=== PATIENT | male | born 1940 | race Caucasian/White ===

== ENCOUNTER 2018-11-25 10:49 | Observation (INO) | payer MEDICARE, BC, SELFPAY ==
[2018-11-25] VITALS (10 sets, daily range): BP systolic 112–149; BP diastolic 69–88; PULSE 60–143; RESP 12–24; TEMP 36.4–36.9; O2SAT 95–99; BMI 35.2
--- NOTE | 2018-11-25 11:11 | DI.RAD.S_ITS ---
PROCEDURE: XR CHEST 1V INDICATIONS: chest pain TECHNIQUE: One view of the chest was acquired. COMPARISON: None. FINDINGS: Surgical changes and devices: None. Lungs and pleura: Lungs are clear. No pleural effusions or pneumothorax. Mediastinum: Mediastinal contours appear normal. Heart size is normal. There is aortic atherosclerosis. Bones and chest wall: No suspicious bony lesions. Overlying soft tissues appear unremarkable. IMPRESSION: Negative chest. No acute cardiopulmonary process is suspected. Dictated by: Renan Rousseau M.D. on 11/25/2018 at 10:28 Approved by: Renan Rousseau M.D. on 11/25/2018 at 10:30
--- NOTE | 2018-11-25 11:14 | ED_ITS ---
HPI - Arrhythmia/Palpitations General Chief Complaint: Shortness of Breath/Dyspnea Stated Complaint: low blood oxygen and erratic HB Time Seen by Provider: 11/25/18 11:06 Source: patient and family Mode of arrival: ambulatory Limitations: no limitations History of Present Illness HPI narrative: Patient is a 78-year-old male with history of obstructive sleep apnea with CPAP machine and pulse oximeter at home presenting with lightheadedness. He is actually found to be in AFib with RVR in the emergency department. He says the he felt lightheaded at home he used his home pulse oximeter placed on his finger and it said 94% which he thought was low in came to the emergency department. He denies any chest pain or heart palpitations. He states that he was not lightheaded yesterday. He has no prior history of AFib. He denies shortness of breath or cough no fever or chills Related Data Home Medications Medication Instructions Recorded Confirmed amlodipine 10 mg PO DAILY 11/25/18 11/25/18 aspirin [Adult Low Dose Aspirin] 81 mg PO DAILY 11/25/18 11/25/18 lisinopril 20 mg PO DAILY 11/25/18 11/25/18 simvastatin 20 mg PO DAILY 11/25/18 11/25/18 tamsulosin 0.4 mg PO DAILY 11/25/18 11/25/18 Allergies Allergy/AdvReac Type Severity Reaction Status Date / Time No Known Drug Allergies Allergy Verified 11/25/18 11:29 Review of Systems Review of Systems ROS Unobtainable: All systems reviewed & are unremarkable except as noted in HPI and below Constitutional Denies chills, Denies fever(s), Denies lethargy and Denies weakness Eyes Denies change in vision, Denies eye discharge, Denies irritation and Denies loss of vision Cardiovascular Reports as per HPI, Reports irregular heart rhythm, Reports lightheadedness, Denies dyspnea and Denies dyspnea on exertion Respiratory Denies cough, Denies dyspnea, Denies dyspnea on exertion and Denies wheezing Gastrointestinal Gastrointestinal: Denies abdominal pain, Denies change in bowel habits, Denies diarrhea, Denies nausea and Denies vomiting Genitourinary Denies hematuria, Denies flank pain, Denies urinary incontinence and Denies urinary urgency Integumentary/Breasts Denies pruritus, Denies erythema, Denies rash and Denies wounds Neurologic Denies loss of vision and Denies weakness Allergic/Immunologic Denies wheezing [facility] Medical History (Updated 11/25/18 @ 15:33 by Mamie Mitchell RN) BPH (benign prostatic hyperplasia) (Acute) Cataract (lens) fragments in eye following cataract surgery, bilateral (Acute) Hyperlipidemia (Acute) Hypertension (Acute) Sleep apnea (Acute) Surgical History (Updated 11/25/18 @ 15:33 by Mamie Mitchell RN) H/O hernia repair (Acute) History of tonsillectomy (Acute) Hx laparoscopic cholecystectomy (Acute) Social History marital status: household members: spouse and children Smoking Status: Former smoker alcohol intake: current Social History marital status: household members: spouse and children Smoking Status: Former smoker alcohol intake: current Exam Initial Vital Signs Initial Vital Signs: Vital Signs Temperature 98 F 11/25/18 11:11 Pulse Rate 143 H 11/25/18 11:11 Respiratory Rate 21 11/25/18 11:11 Blood Pressure 149/88 H 11/25/18 11:11 Pulse Oximetry 97 11/25/18 11:11 GENERAL: Alert elderly male HEENT: Head atraumatic,EOMI, pupils reactive, face symmetric, moist mucous membranes CARDIOVASCULAR: Irregularly irregular tachycardic RESPIRATORY: Breath sounds equal bilaterally, no wheezes rales or rhonchi. ABDOMEN: Soft, nontender. Normoactive bowel sounds all 4 quadrants. No guarding or rebound. EXTREMITIES: Normal range of motion, no clubbing or edema. Neurovascularly intact NEUROLOGICAL: Alert and oriented x4.Normal gait and speech. Cranial nerves II through XII grossly intact. SKIN: Warm, dry, no laceration, no petechiae, no rashes or lesions. Scores CHADS-VASc Congestive heart failure: no Hypertension: yes Age 75 years or older: yes Diabetes mellitus: no Stroke, TIA, or TE: yes Vascular disease: no Age 65 to 74 years: no Sex category (female): Male CHADS-VASc Score: 5 Course Orders Ordered: ED Orders 11/25/18 11:05 EKG-12 Lead Stat 11/25/18 11:11 XR chest 1V Stat 11/25/18 11:15 B Type Natriuretic Peptide Stat Complete Blood Count AUTO DIFF Stat Comprehensive Metabolic Panel Stat Magnesium Stat Partial Thromboplastin Time Stat Prothrombin Time INR Stat Thyroid Stimulating Hormone Stat Troponin & CK Cardiac Panel Stat 11/25/18 13:51 EKG-12 Lead Routine Sodium Chloride (Normal Saline 0.9%) 1,000 mls @ 150 mls/hr IV CONT ROSIE Last Infusion: 11/25/18 14:46 Dose: 150 mls/hr Admin: 11/25/18 11:30 Dose: 150 mls/hr Discontinued Medications Diltiazem HCl (Cardizem) 10 mg IV NOW ONE Stop: 11/25/18 11:11 Last Admin: 11/25/18 11:30 Dose: 10 mg Warfarin Sodium (Coumadin) 5 mg PO NOW ONE Stop: 11/25/18 13:22 Last Admin: 11/25/18 14:30 Dose: Not Given Vital Signs - 8 hr 11/25/18 11:11 11/25/18 11:30 11/25/18 12:30 Temperature 98 F Pulse Rate 143 H 122 H 96 H Respiratory Rate 21 19 Blood Pressure 149/88 H 144/88 H Blood Pressure [Right Arm] 112/79 Pulse Oximetry 97 95 11/25/18 13:30 11/25/18 14:37 11/25/18 14:50 Temperature 98.5 F Pulse Rate 75 64 62 Respiratory Rate 20 12 24 Blood Pressure 128/72 149/81 H Blood Pressure [Right Arm] 137/74 Pulse Oximetry 99 96 97 11/25/18 15:56 Temperature 97.5 F L Pulse Rate 60 Respiratory Rate 19 Blood Pressure 145/78 H Blood Pressure [Right Arm] Pulse Oximetry 97 MDM - Arrhythmia/Palpitations Lab Data Attestation: I reviewed the patient's lab results. Result diagrams: 11/25/18 11:15 11/25/18 11:15 Lab Results 11/25/18 11/25/18 11/25/18 Range/Units 11:15 11:15 11:15 WBC 7.1 (4.5-11.0) X10^3/uL RBC 4.77 (4.5-5.9) X10^6/uL Hgb 15.5 (13.5-17.5) g/dL Hct 44.5 (41-53) % MCV 93.3 (80-100) fL MCH 32.6 (26-34) PG MCHC 34.9 (30-36) % RDW 12.8 (11.6-14.8) % Plt Count 154 (150-400) X10^3/uL Neut % (Auto) 76.4 H (50-75) % Lymph % (Auto) 12.2 L (25-40) % [place] % (Auto) 9.8 (3-14) % Eos % (Auto) 1.1 L (2-4) % Baso % (Auto) 0.5 (0-2) % Neut # (Auto) 5400 (6731-1704) /uL Lymph # (Auto) 900 L (8118-9646) /uL [place] # (Auto) 700 (0-900) /uL Eos # (Auto) 100 (0-450) /uL Baso # (Auto) 0 (0-100) /uL PT 11.4 (10.1-12.7) SECONDS INR 1.0 (0.9-1.3) APTT 37 H (26.4-36.2) SECONDS Sodium 139 (137-145) mmol/L Potassium 4.1 (3.4-5.1) mmol/L Chloride 105 (98-107) mmol/L Carbon Dioxide 24 (22-32) mmol/L BUN 13 (9-20) mg/dL Creatinine 0.80 (0.66-1.25) mg/dL Estimated GFR > 60.0 (>60) mL/min BUN/Creatinine Ratio 16.3 (6-22) Glucose 126 H (80-110) mg/dL Calcium 9.4 (8.4-10.2) mg/dL Magnesium (1.6-2.3) mg/dL Total Bilirubin 0.8 (0.2-1.3) mg/dL AST 36 (17-59) IU/L ALT 28 (21-72) IU/L Alkaline Phosphatase 75 (38-126) U/L Total Creatine Kinase (55-170) U/L CK-MB (CK-2) (<2.37) ng/mL CK-MB (CK-2) Rel Index (1.5-5.0) % Troponin I (0.01-0.034) ng/mL B-Natriuretic Peptide (<100) Total Protein 7.7 (6.3-8.2) g/dL Albumin 4.5 (3.5-5.0) g/dL Globulin 3.2 (1.7-4.1) g/dL Albumin/Globulin Ratio 1.4 (1.0-2.8) TSH (0.47-4.68) uIU/mL 11/25/18 11/25/18 11/25/18 Range/Units 11:15 11:15 11:15 WBC (4.5-11.0) X10^3/uL RBC (4.5-5.9) X10^6/uL Hgb (13.5-17.5) g/dL Hct (41-53) % MCV (80-100) fL MCH (26-34) PG MCHC (30-36) % RDW (11.6-14.8) % Plt Count (150-400) X10^3/uL Neut % (Auto) (50-75) % Lymph % (Auto) (25-40) % [place] % (Auto) (3-14) % Eos % (Auto) (2-4) % Baso % (Auto) (0-2) % Neut # (Auto) (9135-6378) /uL Lymph # (Auto) (6884-1598) /uL [place] # (Auto) (0-900) /uL Eos # (Auto) (0-450) /uL Baso # (Auto) (0-100) /uL PT (10.1-12.7) SECONDS INR (0.9-1.3) APTT (26.4-36.2) SECONDS Sodium (137-145) mmol/L Potassium (3.4-5.1) mmol/L Chloride (98-107) mmol/L Carbon Dioxide (22-32) mmol/L BUN (9-20) mg/dL Creatinine (0.66-1.25) mg/dL Estimated GFR (>60) mL/min BUN/Creatinine Ratio (6-22) Glucose (80-110) mg/dL Calcium (8.4-10.2) mg/dL Magnesium 2.0 (1.6-2.3) mg/dL Total Bilirubin (0.2-1.3) mg/dL AST (17-59) IU/L ALT (21-72) IU/L Alkaline Phosphatase (38-126) U/L Total Creatine Kinase 221 H (55-170) U/L CK-MB (CK-2) 4.10 H (<2.37) ng/mL CK-MB (CK-2) Rel Index 1.9 (1.5-5.0) % Troponin I < 0.012 (0.01-0.034) ng/mL B-Natriuretic Peptide 154 H (<100) Total Protein (6.3-8.2) g/dL Albumin (3.5-5.0) g/dL Globulin (1.7-4.1) g/dL Albumin/Globulin Ratio (1.0-2.8) TSH 2.99 (0.47-4.68) uIU/mL Imaging Data Chest x-ray: Radiologist's impression: PROCEDURE: XR CHEST 1V INDICATIONS: chest pain TECHNIQUE: One view of the chest was acquired. COMPARISON: None. FINDINGS: Surgical changes and devices: None. Lungs and pleura: Lungs are clear. No pleural effusions or pneumothorax. Mediastinum: Mediastinal contours appear normal. Heart size is normal. There is aortic atherosclerosis. Bones and chest wall: No suspicious bony lesions. Overlying soft tissues appear unremarkable. IMPRESSION: Negative chest. No acute cardiopulmonary process is suspected. Dictated by: Renan Rousseau M.D. on 11/25/2018 at 10:28 ECG Data Attestation: I personally reviewed and interpreted this ECG as follows: Prior ECG tracings: not available for review Interpretation: EKG 1. Atrial fibrillation with right bundle-branch block rate [address] changes no priors to compare EKG 2. Sinus rhythm right bundle-branch block rate 65 p.r. interval 193 MDM Narrative Medical decision making narrative: This is new onset atrial fibrillation for patient. Once his heart rate is controlled he is adamant that he is completely asymptomatic. I am not convinced that patient's symptoms started today. For th is reason patient is not a candidate for any sort of cardioversion. He is also not on any blood thinners. The patient's heart rate remained control with 10 mg of Cardizem. However on standing his heart rate increased back up to 130's he denies any lightheadedness at that time. He does have an elevated chads 2 Vasc score and will require anticoagulation. I discussed with him Coumadin versus other type of anticoagulation. At this time his is on Coumadin they are familiar with it and he would like to be on that. I have discussed case with Dr. Majano, agrees with admission to observation. At this time does not need Cardizem drip can likely be controlled with p.o. medications. Patient converted to sinus rhythm I have updated . Discharge Plan Departure Patient Disposition: Admitted as Observation Clinical Impression: Atrial fibrillation, new onset Discharge Date/Time: 11/25/18 14:45 Interventions: ED Discharge Assessment Last Done: 11/25/18 14:37 Admit Date/Time: 11/25/18 13:39 Admit Provider: Ant Smith
[2018-11-25 11:24] LABS: Add Manual Diff / Slide Review NO; Basophils Absolute Auto 0 /uL (0-100); Basophils Percent Auto 0.5 % (0-2); Eosinophils Absolute Auto 100 /uL (0-450); Eosinophils Percent Auto 1.1 % (2-4); Hematocrit 44.5 % (41-53); Hemoglobin 15.5 g/dL (13.5-17.5); Lymphocytes Absolute Auto 900 /uL (1100-4500); Lymphocytes Percent Auto 12.2 % (25-40); Mean Corpuscular HGB Conc 34.9 % (30-36); Mean Corpuscular Hemoglobin 32.6 PG (26-34); Mean Corpuscular Volume 93.3 fL (80-100); Monocytes Absolute Auto 700 /uL (0-900); Monocytes Percent Auto 9.8 % (3-14); Neutrophils Absolute Auto 5400 /uL (1500-7000); Neutrophils Percent Auto 76.4 % (50-75); Platelet Count 154 X10^3/uL (150-400); Red Blood Cell Count 4.77 X10^6/uL (4.5-5.9); Red Cell Distribution Width 12.8 % (11.6-14.8); White Blood Cell Count 7.1 X10^3/uL (4.5-11.0)
[2018-11-25] MEDS: SODIUM CHLORIDE 0.9% 1,000 ML 150 ML IV ×2 (11:30→18:25)
[2018-11-25] MEDS: dilTIAZem 5 MG/ML SDV 10 MG IV (11:30)
[2018-11-25 11:38] LABS: Prothrombin Time 11.4 SECONDS (10.1-12.7)
[2018-11-25 11:40] LABS: PTT Partial Thromboplastin Tim 37 SECONDS (26.4-36.2)
[2018-11-25 11:41] LABS: Creatine Kinase 221 U/L (55-170)
[2018-11-25 11:45] LABS: Alanine Aminotransferase 28 IU/L (21-72); Albumin 4.5 g/dL (3.5-5.0); Albumin Globulin Ratio 1.4 (1.0-2.8); Alkaline Phosphatase 75 U/L (38-126); Aspartate Aminotransferase 36 IU/L (17-59); BUN Creatinine Ratio 16.3 (6-22); Bilirubin Total 0.8 mg/dL (0.2-1.3); Blood Urea Nitrogen 13 mg/dL (9-20); Calcium 9.4 mg/dL (8.4-10.2); Carbon Dioxide 24 mmol/L (22-32); Chloride 105 mmol/L (98-107); Estimated Glomerular Filt Rate > 60.0 mL/min (>60); Globulin 3.2 g/dL (1.7-4.1); Glucose 126 mg/dL (80-110); HEMOLYSIS < 15 (0-50); Potassium 4.1 mmol/L (3.4-5.1); Sodium 139 mmol/L (137-145); Total Protein 7.7 g/dL (6.3-8.2)
[2018-11-25 11:53] LABS: Troponin I < 0.012 ng/mL (0.01-0.034)
[2018-11-25 12:06] LABS: CKMB % Relative Index 1.9 % (1.5-5.0); Thyroid Stimulating Hormone 2.99 uIU/mL (0.47-4.68)
--- NOTE | 2018-11-25 12:51 | PC.NURSE ---
Reports waking up this morning feeling dizzy and lightheaded. Denies any chest pain or pressure.
--- NOTE | 2018-11-25 13:31 | PC.NURSE ---
Stood patient by edge of bed. Hr increased to 142 upon standing. After sitting back on bed hr decreased to low 100s.
[2018-11-25 14:08] LABS: B Type Natriuretic Peptide 154 (<100)
--- NOTE | 2018-11-25 15:31 | PC.NURSE ---
Day Shift- Report rec'd from ALIAN Pizano in ED at 1433. pt arrived to room 205 via wheelchair with ED TOEING STOCKINGS at 1450, pt settled into bed, bed alarm on, no HX of any falls. Pt's Althea at bedside. Pt good historian, oriented to call light. Pt's med list given to Evening RN and report on pt's admit DX and current status. Spoke with Dr. Smith at 1532 and made aware of pt arrival to unit.
--- NOTE | 2018-11-25 16:25 | P.HP_ITS ---
History of Present Illness Date Patient Seen: 11/25/18 Time Patient Seen: 17:36 Chief complaint: low blood oxygen and erratic HB Narrative: Robbin fabian is a 78-year-old male with past medical history hypertension, hyperlipidemia, BPH, and TAD with recent difficulties with CPAP machine who presented to the ED with lightheadedness. Patient states this morning he developed acute lightheadedness, mild confusion (described as grogginess) which started suddenly. He felt his pulse and it was irregularly irregular so he decided to come to the emergency room. He reports a prior episode of AFib, but does not recall an ultrasound and was not prescribed any medications for this. He denies recent chest pain, nausea, vomiting, diaphoresis, shortness of breath, orthopnea, headaches, lower extremity edema, or fevers chills. He follows with a primary care doctor but has not seen them in over a year. He has a 16 pack year smoking history, but denies diabetes or prior thyroid problems. He denies any known family history of heart disease. In the emergency room he was found to be in AFib with RVR, he was given 10 mg of IV diltiazem with improvement in his rate and subsequent conversion to normal sinus rhythm. Upon my interview his symptoms had resolved and he felt well. He was admitted to Medicine under observation status for new diagnosis of AFib with RVR. Patient History Medical History (Updated 11/25/18 @ 15:33 by Mamie Mitchell RN) BPH (benign prostatic hyperplasia) (Acute) Cataract (lens) fragments in eye following cataract surgery, bilateral (Acute) Hyperlipidemia (Acute) Hypertension (Acute) Sleep apnea (Acute) Surgical History (Updated 11/25/18 @ 15:33 by Mamie Mitchell RN) H/O hernia repair (Acute) History of tonsillectomy (Acute) Hx laparoscopic cholecystectomy (Acute) Social History marital status: household members: spouse and children Smoking Status: Former smoker alcohol intake: current Family & Social History Social History: household members spouse,children Prior Living Arrangements House Safety & Behavioral: Feels Safe in Current Yes Environment Been Physically Hurt or No Threatened By a Person Suicidal Ideation Description None Suicide Plan Description No Plan Tobacco & Substance use: Tobacco type cigarettes,pipe Smoking Status Former smoker alcohol intake current alcohol intake frequency a few times a week Substance Use Type does not use Meds Home Medications Medication Instructions Recorded Confirmed Type amlodipine 10 mg PO DAILY 11/25/18 11/25/18 History aspirin [Adult Low Dose Aspirin] 81 mg PO DAILY 11/25/18 11/25/18 History lisinopril 20 mg PO DAILY 11/25/18 11/25/18 History simvastatin 20 mg PO DAILY 11/25/18 11/25/18 History tamsulosin 0.4 mg PO DAILY 11/25/18 11/25/18 History Allergies Allergy/AdvReac Type Severity Reaction Status Date / Time No Known Drug Allergies Allergy Verified 11/25/18 11:29 Review of Systems Review of Systems All other systems reviewed with the patient and are negative unless otherwise stated. Exam Vital Signs (past 8 hours): - 11/25/18 11:11 11/25/18 11:30 11/25/18 12:30 Temperature 98 F Pulse Rate 143 H 122 H 96 H Respiratory Rate 21 19 Blood Pressure 149/88 H 144/88 H Blood Pressure [Right Arm] 112/79 Pulse Oximetry 97 95 11/25/18 13:30 11/25/18 14:37 11/25/18 14:50 Temperature 98.5 F Pulse Rate 75 64 62 Respiratory Rate 20 12 24 Blood Pressure 128/72 149/81 H Blood Pressure [Right Arm] 137/74 Pulse Oximetry 99 96 97 11/25/18 15:56 Temperature 97.5 F L Pulse Rate 60 Respiratory Rate 19 Blood Pressure 145/78 H Blood Pressure [Right Arm] Pulse Oximetry 97 Oxygen Delivery Method Room Air Oxygen Flow Rate 0 Narrative Exam Narrative: GENERAL APPEARANCE: Well developed, well nourished, in no acute distress. SKIN: Inspection of the skin reveals no rashes, ulcerations or petechiae. There are small scattered bruises in his upper extremities. HEENT: The sclerae were anicteric and conjunctivae were pink and moist. Extraocular movements were intact and pupils were equal, round with normal accommodation. External inspection of the ears and nose showed no scars, lesions, or masses. Lips, teeth, and gums showed normal mucosa. The oral mucosa, hard and soft palate, tongue and posterior pharynx were unremarkable. NECK: Supple and symmetric. There was no thyroid enlargement, and no tenderness, or masses were felt. CHEST: Normal AP diameter and normal contour without any kyphoscoliosis. LUNGS: Auscultation of the lungs revealed no wheezes, rhonchi, or rales. CARDIOVASCULAR: There was a regular rate and rhythm without any murmurs, gallops, rubs. Peripheral pulses were 2+ and symmetric. ABDOMEN: Soft and nontender with normal bowel sounds. No ascites was noted. MUSCULOSKELETAL: There was no tenderness or effusions noted. Muscle strength and tone were normal. EXTREMITIES: No cyanosis, clubbing or edema. NEUROLOGIC: Alert and oriented x 3. Normal affect. Gait was normal. Strength is +5/5 in the Upper Extremities and Lower Extremities Bilaterally. Sensation to touch was normal. Objective ECG Impression: My interpretation of his EKG is Atrial fibrillation with RVR. Right bundle branch block. Possible inferior old ID. Subsequent EKG showing normal sinus rhythm with right bundle branch block. Labs Result Diagrams: 11/25/18 11:15 11/25/18 11:15 Labs: Laboratory Results - last 24 hr 11/25/18 11/25/18 11/25/18 11:15 11:15 11:15 WBC 7.1 RBC 4.77 Hgb 15.5 Hct 44.5 MCV 93.3 MCH 32.6 MCHC 34.9 RDW 12.8 Plt Count 154 Neut % (Auto) 76.4 H Lymph % (Auto) 12.2 L [place] % (Auto) 9.8 Eos % (Auto) 1.1 L Baso % (Auto) 0.5 Neut # (Auto) 5400 Lymph # (Auto) 900 L [place] # (Auto) 700 Eos # (Auto) 100 Baso # (Auto) 0 PT 11.4 INR 1.0 APTT 37 H Sodium 139 Potassium 4.1 Chloride 105 Carbon Dioxide 24 BUN 13 Creatinine 0.80 Estimated GFR > 60.0 BUN/Creatinine Ratio 16.3 Glucose 126 H Calcium 9.4 Magnesium Total Bilirubin 0.8 AST 36 ALT 28 Alkaline Phosphatase 75 Total Creatine Kinase CK-MB (CK-2) CK-MB (CK-2) Rel Index Troponin I B-Natriuretic Peptide Total Protein 7.7 Albumin 4.5 Globulin 3.2 Albumin/Globulin Ratio 1.4 TSH 11/25/18 11/25/18 11/25/18 11:15 11:15 11:15 WBC RBC Hgb Hct MCV MCH MCHC RDW Plt Count Neut % (Auto) Lymph % (Auto) [place] % (Auto) Eos % (Auto) Baso % (Auto) Neut # (Auto) Lymph # (Auto) [place] # (Auto) Eos # (Auto) Baso # (Auto) PT INR APTT Sodium Potassium Chloride Carbon Dioxide BUN Creatinine Estimated GFR BUN/Creatinine Ratio Glucose Calcium Magnesium 2.0 Total Bilirubin AST ALT Alkaline Phosphatase Total Creatine Kinase 221 H CK-MB (CK-2) 4.10 H CK-MB (CK-2) Rel Index 1.9 Troponin I < 0.012 B-Natriuretic Peptide 154 H Total Protein Albumin Globulin Albumin/Globulin Ratio TSH 2.99 Assessment & Plan Assessment & Plan narrative: Robbin fabian is a 78-year-old male with past medical history hypertension, hyperlipidemia, BPH, and TAD with recent difficulties with CPAP machine who presented to the ED with lightheadedness admitted under observation status for new diagnosis of atrial fibrillation. 1. Paroxysmal Atrial fibrillation with RVR, present on admission, now improved. - New diagnosis, unclear if he truly had atrial fibrillation in the past, and he is currently in normal sinus rhythm after receiving 10 mg of IV diltiazem. His chads Vasc score is 5. This may be in the setting of recently worsened TAD. -risk stratification with A1c, TSH already done and is within normal limits, and lipid panel -will start oral apixaban tonight -obtain TTE -continue diltiazem 30 mg q.6 hours -continue tele -1st troponin negative, will repeat a 2nd tonight to rule out ACS. 2. Hypertension, chronic -discontinue amlodipine in favor of diltiazem -continue home lisinopril 3. Hyperlipidemia, chronic -will repeat lipid panel in the morning as he has not seen his primary care physician in a year. -continue simvastatin 20 mg 4. BPH - -continue home tamsulosin 5. Obstructive sleep apnea, chronic - -CPAP per RT protocol Disposition: Admit under observation, if echo grossly unremarkable can be discharged potentially tomorrow. Scores CHADS-VASc Congestive heart failure: no Hypertension: yes Age 75 years or older: yes Diabetes mellitus: no Stroke, TIA, or TE: yes Vascular disease: no Age 65 to 74 years: no Sex category (female): Male CHADS-VASc Score: 5 Quality VTE Deep Vein Thrombosis/Pulmonary Embolism Present on Admission: No
--- NOTE | 2018-11-25 16:38 | DI.ECHO.S_ITS ---
[place] [facility]---------+ [facility] +---------+ : : [address] : : : : [id number] : : : : Phone: [phone] Echocardiogram Report + + :Name: LOBO FREITAS Study Date: 11/26/2018 Height: 72 in : :[facility] Weight: 260 lb : : Gender: Male BSA: 2.4 m2 : :: 1940 Age: 78 yrs BP: 149/81 mmHg: :Reason For Study: Atrial fibrillation, NEW : :Ordering Physician: Cosme : :Hospitalist Performed By: [place] : :Referring: JACKI AGRAWAL : + + Interpretation Summary Technically difficult study requiring Definity echocontrast enhancement. Normal sinus rhythm. Normal LV size; mild concentric LVH; mild global hypokinesis. EF is 45-50%. Aortic sclerosis wtihout stenosis. Otherwise no significant valvular abnormalities. Mild LA enlargement. Otherwise normal chamber sizes. No prior study available for comparison. Procedure: A two-dimensional transthoracic echocardiogram with color flow and Doppler was performed. The study quality was technically adequate. A contrast injection of Definity was performed to improve assessment of LV function. There is no prior echocardiogram noted for this patient. The patient was in sinus bradycardia with heart rates between 56-63 bpm during the exam. Left Ventricle: The left ventricle is normal in size. Left ventricular wall thickness is mildly increased. The ejection fraction is estimated to be 45- 50%. There are no obvious focal wall motion abnormalities noted but poor endocardial definition reduces the sensitivity for the detection of such. Right Ventricle: The right ventricle is normal in size and function. Atria: The left atrium is mildly dilated. Right atrial size is normal. The interatrial septum is intact with no evidence for an atrial septal defect. Mitral Valve: There is mild mitral regurgitation. Aortic Valve: The aortic valve is trileaflet. The aortic valve is mildly calcified. There is minimally reduced leaflet mobility. There is mild aortic regurgitation. Tricuspid Valve: The tricuspid valve is normal. There is mild tricuspid regurgitation. The right ventricular systolic pressure is estimated to be at least 29 mmHg based on an estimated right atrial pressure of 3 mm Hg. Pulmonic Valve: The pulmonic valve leaflets are thin and pliable; valve motion is normal. There is a trace or physiologic amount of pulmonic regurgitation. Great Vessels: The aortic root is borderline dilated. The ascending aorta is mildly enlarged. The pulmonary artery is not well visualized, but is probably normal size. The IVC is of normal diameter and collapses greater than 50% with a sniff. This suggests a low right atrial pressure of 3 mm Hg. Pericardium/ Pleura There is no pericardial effusion. There is no pleural effusion. MMode/2D Measurements & Calculations LVIDd: 5.2 cm LVOT diam: 2.5 cm LVIDs: 4.0 cm Ao root diam: 4.2 cm FS: 22.9 % asc Aorta Diam: 3.8 cm EPSS: 1.3 cm Ao Arch Diam (Prox Trans): 3.1 cm IVSd: 1.1 cm LVPWd: 1.1 cm LV lopez. diameter/BSA (cm/m^2): 2.2 LV sys. diameter/BSA (cm/m^2): 1.7 LA A2 area: 29.2 cm2 RA long axis: 6.6 cm LA A4 area: 26.1 cm2 RA area: 21.3 cm2 LA length (vol): 6.4 cm RA vol: 58.4 ml LA vol: 101.2 ml RA : 24.5 ml/m2 LA vol index: 42.5 ml/m2 RVD1 (basal): 4.6 cm TAPSE: 2.4 cm Doppler Measurements & Calculations Ao V2 max: 143.9 cm/sec LVOT Max Red: 79.0 cm/sec Ao V2 mean: 105.8 cm/sec LV V1 max P.5 mmHg Ao max P.3 mmHg LV V1 VTI: 19.3 cm Ao mean P.8 mmHg SLIME(I,D): 2.8 cm2 Ao V2 VTI: 34.0 cm SLIME(V,D): 2.7 cm2 sev ratio: 0.57 SLIME indexed to BSA (cm^2/m^2): 1.2 MV E max red: 100.9 cm/sec TR max red: 253.1 cm/sec MV A max red: 112.9 cm/sec TR max P.6 mmHg MV E/A: 0.89 PA V2 max: 63.6 cm/sec Med Peak E' Red: 6.0 cm/sec PA V2 mean: 44.4 cm/sec E/E' med: 16.8 PA mean P.85 mmHg Lat Peak E' Red: 6.5 cm/sec PA pr(Accel): 41.6 mmHg E/E' lat: 15.5 E/e' average: 16.1 MV dec time: 0.25 sec SV(LVOT): 93.7 ml Electronically signed by: Cha Barker M.D. on Reading Physician:11/26/2018 07:01 PM
[2018-11-25] MEDS: dilTIAZem 30 MG TABLET PO (17:56)
[2018-11-25 19:41] LABS: Troponin I < 0.012 ng/mL (0.01-0.034)
[2018-11-25] MEDS: APIXABAN 5 MG TABLET PO (20:31)
--- NOTE | 2018-11-25 22:29 | PC.NURSE ---
Pt is A and O x 4, sinus pankaj (55-67) other VSS. Pt is pleasant and cooperative. Per RT he refused using one of our CPAP machines this shift, LIP advised. Pt is eating, drinking and voiding with +BT. LS clear.
[2018-11-26] VITALS (11 sets, daily range): BP systolic 100–153; BP diastolic 71–92; PULSE 57–69; RESP 16–18; TEMP 36.5–36.8; O2SAT 94–98
[2018-11-26] MEDS: dilTIAZem 30 MG TABLET PO ×4 (00:15→18:20)
--- NOTE | 2018-11-26 00:25 | PC.NURSE ---
Shift note: Received pt from evening shift. Prior to start of shift, pt's heart rate dropped into the 40's and was notified to evening shift by ICU telemetry monitoring. Prior to administration of scheduled 30mg PO diltiazem, auscultated pt's heart rate and noted that it was 57 BPM with a regular rate and rhythm. Notified JAIRO Pride of pt's heart rate and she ordered that diltiazem to be given. Educated pt on medication and its use prior to administration. Pt is AxOx3, able to make needs known, uses call light appropriately. Pt is hypertensive at 144/77 and bradycardic at 57, all other VSS are WNL. Pt has 3+ pitting edema to lower extremities that pt reports is new. All other systems are WNL. Pt is a low fall risk at this time.
[2018-11-26] MEDS: SODIUM CHLORIDE 0.9% 1,000 ML 150 ML IV ×2 (01:09→07:57)
[2018-11-26 06:24] LABS: Add Manual Diff / Slide Review NO; Basophils Absolute Auto 0 /uL (0-100); Basophils Percent Auto 0.6 % (0-2); Eosinophils Absolute Auto 100 /uL (0-450); Eosinophils Percent Auto 1.3 % (2-4); Hematocrit 38.8 % (41-53); Hemoglobin 13.5 g/dL (13.5-17.5); Lymphocytes Absolute Auto 700 /uL (1100-4500); Lymphocytes Percent Auto 12.1 % (25-40); Mean Corpuscular HGB Conc 34.7 % (30-36); Mean Corpuscular Hemoglobin 32.3 PG (26-34); Mean Corpuscular Volume 93.1 fL (80-100); Monocytes Absolute Auto 600 /uL (0-900); Monocytes Percent Auto 10.5 % (3-14); Neutrophils Absolute Auto 4400 /uL (1500-7000); Neutrophils Percent Auto 75.5 % (50-75); Platelet Count 132 X10^3/uL (150-400); Red Blood Cell Count 4.17 X10^6/uL (4.5-5.9); Red Cell Distribution Width 13.1 % (11.6-14.8); White Blood Cell Count 5.8 X10^3/uL (4.5-11.0)
[2018-11-26 06:31] LABS: BUN Creatinine Ratio 16.3 (6-22); Blood Urea Nitrogen 13 mg/dL (9-20); Calcium 8.7 mg/dL (8.4-10.2); Carbon Dioxide 27 mmol/L (22-32); Chloride 105 mmol/L (98-107); Estimated Glomerular Filt Rate > 60.0 mL/min (>60); Glucose 111 mg/dL (80-110); HEMOLYSIS < 15 (0-50); Potassium 4.2 mmol/L (3.4-5.1); Sodium 140 mmol/L (137-145)
[2018-11-26 06:33] LABS: Cholesterol 100 mg/dL (140-199); HDL Cholesterol 36 mg/dL (40-60); LDL Cholesterol Calculated 47 mg/dL (<100); Triglycerides 83 mg/dL (35-150)
[2018-11-26 06:44] LABS: Hemoglobin A1C% w Est Avg Glu 5.2 % (4.0-6.0); INR 1.1 (0.9-1.3); PTT Partial Thromboplastin Tim 40 SECONDS (26.4-36.2); Prothrombin Time 13.1 SECONDS (10.1-12.7)
[2018-11-26] MEDS: ASPIRIN EC 81 MG TABLET PO (08:04)
[2018-11-26] MEDS: APIXABAN 5 MG TABLET PO (08:04)
[2018-11-26] MEDS: TAMSULOSIN 0.4 MG CAPSULE PO (08:04)
--- NOTE | 2018-11-26 12:53 | PC.NURSE ---
1245 echo done, Pt now eating his lunch. No c/o at this time.
--- NOTE | 2018-11-26 13:11 | P.DS_ITS ---
History of Present Illness Chief complaint: low blood oxygen and erratic HB Narrative: Robbin Peña is a 78-year-old male with past medical history hypertension, hyperlipidemia, BPH, and TAD with recent difficulties with CPAP machine who presented to the ED with lightheadedness. Patient states this morning he developed acute lightheadedness, mild confusion (described as grogginess) which started suddenly. He felt his pulse and it was irregularly irregular so he decided to come to the emergency room. He reports a prior episode of AFib, but does not recall an ultrasound and was not prescribed any medications for this. He denies recent chest pain, nausea, vomiting, diaphoresis, shortness of breath, orthopnea, headaches, lower extremity edema, or fevers chills. He follows with a primary care doctor but has not seen them in over a year. He has a 16 pack year smoking history, but denies diabetes or prior thyroid problems. He denies any known family history of heart disease. In the emergency room he was found to be in AFib with RVR, he was given 10 mg of IV diltiazem with improvement in his rate and subsequent conversion to normal sinus rhythm. Upon my interview his symptoms had resolved and he felt well. He was admitted to Medicine under observation status for new diagnosis of AFib with RVR. Discharge Providers Date of admission: 11/25/18 13:39 Discharge Date: 11/26/18 Primary care physician: Stephen Mora MD Discharge provider: Ant Smith DO Summary Discharge Diagnosis: 1. Paroxysmal Atrial fibrillation with RVR, present on admission, now improved. 2. Hypertension, chronic 3. Hyperlipidemia, chronic - 4. BPH - 5. Obstructive sleep apnea, chronic - Hospital Course: Robbin peña is a 78-year-old male with past medical history hypertension, hyperlipidemia, BPH, and TAD with recent difficulties with CPAP machine who presented to the ED with lightheadedness admitted under observation status for new diagnosis of atrial fibrillation, he remained in normal sinus rhythm on the floor and had no events overnight. His echocardiogram showed no significant valvular disease upon my review, although final read is pending. I will call him with updated results and possible changes in his plan. He was discharged the next day in good condition. 1. Paroxysmal Atrial fibrillation with RVR, present on admission, now improved. - New diagnosis, unclear if he truly had atrial fibrillation in the past, and he is currently in normal sinus rhythm after starting diltiazem. His chads Vasc score is 5. This may be in the setting of recently worsened TAD. He was asymptomatically bradycardic into the mid 40s on telemetry, however when awake his heart rate is in the normal range. I am continuing him on the lowest dose of diltiazem possible in the outpatient setting. His echocardiogram was still pending final read, but upon my view did not show any significant valvular pathologies. I will call the patient to inform him of the results. -A1c, TSH, and lipid panel were unremarkable -TTE as noted above. -continue dilt 120 mg daily -continue tele -troponins were negative x2. 2. Hypertension, chronic -discontinue amlodipine in favor of diltiazem -continue home lisinopril 3. Hyperlipidemia, chronic - lipid panel showing adequate control, can continue home statin. -continue simvastatin 20 mg 4. BPH - -continue home tamsulosin 5. Obstructive sleep apnea, chronic - - has home CPAP machine which he is working on fixing at the moment. Status at Discharge Cognitive/behavioral status at discharge: oriented Functional status at discharge: independent ambulation Overall status at discharge: patient is back to baseline Time Spent with Patient Greater than 30 minutes Exam Vital Signs (past 8 hours): - 11/26/18 05:59 11/26/18 07:00 11/26/18 07:15 Temperature 97.9 F Pulse Rate 63 61 Respiratory Rate 18 Blood Pressure 137/79 145/71 H Pulse Oximetry 97 98 Oxygen Delivery Method Room Air Oxygen Flow Rate 0 Narrative Exam Narrative: GENERAL APPEARANCE: Well developed, well nourished, in no acute distress. SKIN: Inspection of the skin reveals no rashes, ulcerations or petechiae. There are small scattered bruises in his upper extremities. HEENT: The sclerae were anicteric and conjunctivae were pink and moist. Extraocular movements were intact and pupils were equal, round with normal accommodation. External inspection of the ears and nose showed no scars, lesions, or masses. Lips, teeth, and gums showed normal mucosa. The oral mucosa, hard and soft palate, tongue and posterior pharynx were unremarkable. NECK: Supple and symmetric. There was no thyroid enlargement, and no tenderness, or masses were felt. CHEST: Normal AP diameter and normal contour without any kyphoscoliosis. LUNGS: Auscultation of the lungs revealed no wheezes, rhonchi, or rales. CARDIOVASCULAR: There was a regular rate and rhythm without any murmurs, gallops, rubs. Peripheral pulses were 2+ and symmetric. ABDOMEN: Soft and nontender with normal bowel sounds. No ascites was noted. MUSCULOSKELETAL: There was no tenderness or effusions noted. Muscle strength and tone were normal. EXTREMITIES: No cyanosis, clubbing or edema. NEUROLOGIC: Alert and oriented x 3. Normal affect. Gait was normal. Strength is +5/5 in the Upper Extremities and Lower Extremities Bilaterally. Sensation to touch was normal. Objective Labs Result Diagrams: 11/26/18 05:58 11/26/18 05:58 Labs: Laboratory Results - last 24 hr 11/25/18 11/25/18 11/26/18 11:15 18:55 05:58 WBC 5.8 RBC 4.17 L Hgb 13.5 Hct 38.8 L MCV 93.1 MCH 32.3 MCHC 34.7 RDW 13.1 Plt Count 132 L Neut % (Auto) 75.5 H Lymph % (Auto) 12.1 L [place] % (Auto) 10.5 Eos % (Auto) 1.3 L Baso % (Auto) 0.6 Neut # (Auto) 4400 Lymph # (Auto) 700 L [place] # (Auto) 600 Eos # (Auto) 100 Baso # (Auto) 0 PT INR APTT Sodium Potassium Chloride Carbon Dioxide BUN Creatinine Estimated GFR BUN/Creatinine Ratio Glucose Hemoglobin A1c Calcium Magnesium Troponin I < 0.012 B-Natriuretic Peptide 154 H Triglycerides Cholesterol LDL Cholesterol, Calc HDL Cholesterol 11/26/18 11/26/18 11/26/18 05:58 05:58 05:58 WBC RBC Hgb Hct MCV MCH MCHC RDW Plt Count Neut % (Auto) Lymph % (Auto) [place] % (Auto) Eos % (Auto) Baso % (Auto) Neut # (Auto) Lymph # (Auto) [place] # (Auto) Eos # (Auto) Baso # (Auto) PT 13.1 H INR 1.1 APTT 40 H D Sodium 140 Potassium 4.2 Chloride 105 Carbon Dioxide 27 BUN 13 Creatinine 0.80 Estimated GFR > 60.0 BUN/Creatinine Ratio 16.3 Glucose 111 H Hemoglobin A1c 5.2 Calcium 8.7 Magnesium 2.0 Troponin I B-Natriuretic Peptide Triglycerides Cholesterol LDL Cholesterol, Calc HDL Cholesterol 11/26/18 05:58 WBC RBC Hgb Hct MCV MCH MCHC RDW Plt Count Neut % (Auto) Lymph % (Auto) [place] % (Auto) Eos % (Auto) Baso % (Auto) Neut # (Auto) Lymph # (Auto) [place] # (Auto) Eos # (Auto) Baso # (Auto) PT INR APTT Sodium Potassium Chloride Carbon Dioxide BUN Creatinine Estimated GFR BUN/Creatinine Ratio Glucose Hemoglobin A1c Calcium Magnesium Troponin I B-Natriuretic Peptide Triglycerides 83 Cholesterol 100 L LDL Cholesterol, Calc 47 HDL Cholesterol 36 L Discharge Plan Discharge Plan Patient Disposition: Home Discharge comment: You were admitted for atrial fibrillation with a rapid rate. You improved almost immediately in the emergency room with medications. Your risk of stroke with this arrythmia is quite elevated so you were started on apixaban, which you should continue. Your amlodipine was changed to dilitiazem, but you can continue your other blood pressure medications. Your echocardiogram was still pending upon discharge, we will call you with the results when they come in and advise you of any changes. Your A1c was 5.9%, which is mildly elevated but not diagnostic of diabetes. Your thyroid and cholesterol testing was unremarkable. Discharge Med Rec/Prescriptions Prescriptions: New diltiazem HCl 120 mg Capsule,Extended Release 24hr 120 mg PO DAILY 30 Days RF: 0 Eliquis 5 mg Tablet 5 mg PO BID 30 Days Qty: 60 RF: 0 Continued lisinopril 20 mg tablet 20 mg PO DAILY RF: 0 simvastatin 20 mg tablet 20 mg PO DAILY RF: 0 tamsulosin 0.4 mg capsule 0.4 mg PO DAILY RF: 0 aspirin [Adult Low Dose Aspirin] 81 mg Tablet,Delayed Release (Dr/Ec) 81 mg PO DAILY RF: 0 Discontinued amlodipine 10 mg tablet 10 mg PO DAILY RF: 0 Follow up/Referrals: Stephen Mora MD [Primary Care Provider] - Provider Discharge Instructions Diet: Diet as Tolerated Activity: As tolerated Visit Report/Discharge Packet Instructions: DI for Atrial Fibrillation, How to Prevent Falls, Diltiazem Visit Report Forms: Stroke Signs & Symptoms Discharge Data Primary Care Provider: Stephen Mora Attending Provider: Ant Smith Admit Date/Time: 11/25/18 13:39 Quality VTE Deep Vein Thrombosis/Pulmonary Embolism Present on Admission: No
--- NOTE | 2018-11-26 13:47 | CM.DANOTE ---
Discharge Planning/Care Management DCP: assessment: case received, EMR reviewed. Discussed in Team Rounds. Dr. Smith noted pt with new dx of Afib/RVR. ECHO was pending. He noted pt might be able to d/c to home setting later today pending ECHO results. Pt is a 78 year old male who admitted yesterday afternoon to care of hospitalist team. Payer Medicare and BCBS out of [facility] Admission status: OBS: confirmed by UR RN Destiny. Met now with pt. Introduced self and role. Pt was found sitting up on side of bed eating lunch. He noted that he was hopeful he would be ok for d/c later today. ECHO had just been completed at 1215. His Althea and his son will pick him up when he is released. He confirmed that Stephen Mora remains his PCP although it has been some time since he saw him. He says he is functionally independent at home and in the community. He drives. He also clarifies that he and Althea live at the [facility] address in [place] and that the old [facility] address, listed on his face sheet as Althea's address is very old. Will alert [facility] [place] remove this from the demographic information. P: home later today if ok'd for same. If not, DCP team will check in tomorrow and follow for any d/c needs that may arise. CM Discharge Assessment Start: 11/26/18 13:46 Freq: Status: Active Protocol: Document 11/26/18 13:46 ITV (Rec: 11/26/18 13:47 ITV [id number]) Discharge Planning Assessment Advance Directives? No Advance Directives on File No History Provided By Patient Medical Record Prior Living Arrangements House Household Members spouse children Type of transporation used prior to Drives own vehicle admit Independent with ADL's Yes Is patient alert and oriented? Yes Review Status In Process
--- NOTE | 2018-11-26 18:46 | PC.NURSE ---
Reviewed patient discharge summary with patient and spouse. Pt has all of his personal belongings. Pt has paperwork and prescription for Diltalizam. Patient escorted out of facility by staff to drive home in private vehicle. Time of discharge 184.
== END 2018-11-26 18:29 | disposition home or self-care (01) ==
LOC: ED 13:38 → AC 13:40
PROVIDERS: Admitting Provider Internal Medicine; Emergency Provider Emergency Medicine; PCP Family Medicine; Visit Provider Internal Medicine
DX: I48.0 Paroxysmal atrial fibrillation (principal); G47.33 Obstructive sleep apnea (adult) (pediatric); I10 Essential (primary) hypertension; N40.0 Benign prostatic hyperplasia without lower urinary tract symptoms; E87.5 Hyperkalemia
CPT/HCPCS: 36415; 36591; 71045; 80048; 80053; 80061; 82550; 82553; 83036; 83735; 83880; 84443; 84484; 85025; 85610; 85730; 93005; 93306; 94762; 96361; 96374; 99282; 99285; G0378

== ENCOUNTER → 2020-07-23 13:11 | Outpatient (CLI) | payer MEDICARE, OTHER, SELFPAY ==
[2018-11-25 15:01] VITALS: BMI 35.2
--- NOTE | 2020-07-23 13:14 | DI.MRI.S_ITS ---
PROCEDURE: MR HEAD/BRAIN WO CON INDICATIONS: NEW ONSET COGNITION DIFFICULTIES TECHNIQUE: Non-contrast axial T1 spin echo, axial T2 fast spin echo, sagittal and axial FLAIR, coronal T2 fast spin echo, axial gradient echo, axial diffusion and ADC through the brain. COMPARISON: None. FINDINGS: Image quality: Excellent. CSF spaces: Ventricles appear symmetric in size and shape. Basal cisterns are patent. No extra-axial fluid collections. Brain: No intracranial bleeds or mass effects. There is cerebral volume loss for age. There are periventricular and deep white matter chronic small vessel ischemic changes. Brainstem appears normal. Diffusion-weighted images show no acute ischemic insults. There is a remote right frontal lobe infarct seen superiorly, with volume loss and encephalomalacia. Normal intravascular flow voids are present. Skull and face: Calvarial bone marrow is normal in signal. Orbits are normal. Note is made of bilateral lens replacements. Sinuses: Sinuses and mastoids are clear. S shaped nasal septal deviation can be seen. IMPRESSION: Remote right frontal lobe infarct, without an acute or subacute infarction seen. Note is made of age-appropriate brain parenchymal volume loss and chronic small vessel ischemic changes. Dictated by: Blaise Wright M.D. on 07/23/2020 at 13:24 Approved by: Blaise Wright M.D. on 07/23/2020 at 13:26
== END ==
PROVIDERS: PCP Family Medicine; Referring Provider Family Medicine; Visit Provider Family Medicine
DX: F09 Unspecified mental disorder due to known physiological condition (principal); R26.2 Difficulty in walking, not elsewhere classified; Z86.73 Personal history of transient ischemic attack (TIA), and cerebral infarction without residual deficits
CPT/HCPCS: 70551

== ENCOUNTER 2021-05-14 23:29 | Inpatient (IN) | payer MEDICARE, OTHER, SELFPAY ==
[2018-11-25 15:01] VITALS: BMI 35.2
--- NOTE | 2021-05-14 23:28 | DI.CT.S_ITS ---
PROCEDURE: CT STROKE INDICATIONS: code stroke TECHNIQUE: Noncontrast 4.5 mm thick angled axial sections acquired from the foramen magnum to the vertex, with coronal reformats. For radiation dose reduction, the following was used: automated exposure control, adjustment of mA and/or kV according to patient size. COMPARISON: [facility], MR, MR HEAD/BRAIN WO CON, 07/23/2020, 13:32. FINDINGS: Image quality: Excellent. CSF spaces: Basal cisterns are patent. No extra-axial fluid collections. Ventricles are normal in size and shape. Brain: No midline shift. No intracranial masses or hemorrhage. Grant-white matter interface is normal. Remote infarct in the right subcortical frontoparietal lobe. Subcortical and periventricular white matter hypodensities are consistent with microvascular ischemic disease. Severe vascular calcifications are seen in the vertebrobasilar arteries and the intracranial ICAs. Skull and face: Calvarium and visualized facial bones are intact, without suspicious lesions. Sinuses: Visualized sinuses and mastoids are clear. IMPRESSION: 1. No acute intracranial abnormality. 2. Remote right frontoparietal infarct. 3. Microvascular ischemic disease and diffuse atrophy. Findings were discussed with Dr. Bradley at 23:52. This study fulfills neurological imaging criteria for inclusion or exclusion of acute stroke therapies based on available published neurological imaging guidelines. Dictated by: Juan Gonzalez M.D. on 05/14/2021 at 23:47 Approved by: Juan Gonzalez M.D. on 05/14/2021 at 23:51
--- NOTE | 2021-05-14 23:29 | DI.CT.S_ITS ---
PROCEDURE: CT ANGIO HEAD AND NECK INDICATIONS: code stroke TECHNIQUE: After the administration of intravenous contrast, 1 mm thick sections acquired from the aortic arch through the [place] of [place]. Post-contrast 4.5 mm thick sections then re-acquired from the foramen magnum to the vertex. 3-dimensional [id number] (MIP) and/or volume rendering reformats were acquired of the central intracranial vasculature and neck separately. COMPARISON: None. FINDINGS: Image quality: Excellent. BRAIN: CSF spaces: Ventricles are normal in size and shape. Basal cisterns are patent. No extra-axial fluid collections. Subcortical and periventricular white matter hypodensities are consistent with microvascular ischemic disease. There is a remote infarct in the right subcortical frontoparietal lobe. Brain: No midline shift. No intracranial bleeds or masses. Grant-white matter interface appears intact. Skull and face: Calvarium and facial bones appear intact, without suspicious lesions. Orbits appear normal. Sinuses: Sinuses and mastoids are clear. HEAD CT ANGIOGRAPHY: Anterior circulation: The intracranial ICAs have severe atherosclerotic calcifications in the cavernous portions causing approximately 70% stenosis bilaterally. Both MCAs and ACAs are patent with this. Posterior circulation: The right intracranial vertebral artery has severe atherosclerotic calcifications causing 90% stenosis. The left vertebral artery is non dominant and miniscule. The vertebral artery is patent. The right has a thrombus just distal to the bifurcation. The left [employer] is patent. NECK CT ANGIOGRAPHY: Carotid system: The great vessels demonstrate a conventional anatomy as they arise from the aortic arch. The origins of the common carotid arteries appear patent. The common carotid arteries demonstrate diffuse atherosclerotic calcifications but are normal caliber and courses. The bifurcation regions are both patent with no significant stenosis. The internal carotid arteries demonstrate normal calibers and courses. Posterior circulation: The origins of the vertebral arteries both appear widely patent. The more superior extracranial portions of both vertebral arteries also demonstrate normal courses and calibers. They join to form a normal appearing basilar artery. Soft tissues: There is a 1.8 cm sebaceous cyst in the posterior occiput/upper neck in the midline. Visualized neck soft tissues demonstrate no suspicious abnormalities. Bones: No suspicious bony lesions. Visualized cervical spine appears normally aligned. IMPRESSION: 1. Thrombus in the right proximal [employer] just distal to the bifurcation. 2. 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 3. Severe atherosclerotic calcifications in both intracranial ICAs with approximately 70% stenosis bilaterally. 4. Atherosclerotic disease of both carotid arteries with no significant stenosis. Any quantitative measurements of stenosis were performed using NASCET criteria. Findings were discussed with the emergency department at 01:25 on 05/15/[address] Bradley Dictated by: Juan Gonzalez M.D. on 05/15/2021 at 1:12 Approved by: Juan Gonzalez M.D. on 05/15/2021 at 1:30
[2021-05-14 23:37] VITALS: BP 245/120; PULSE 86; RESP 22; TEMP 36.9; O2SAT 97
[2021-05-14 23:38] VITALS: BP 245/120; PULSE 93; RESP 22; O2SAT 98
[2021-05-14 23:43] VITALS: BP 245/120; PULSE 88; RESP 22
[2021-05-14 23:44] VITALS: BP 244/117; PULSE 85; RESP 22; O2SAT 96
[2021-05-14 23:48] LABS: Add Manual Diff / Slide Review NO; Basophils Absolute Auto 100 /uL (0-100); Basophils Percent Auto 0.8 % (0-2); Eosinophils Absolute Auto 100 /uL (0-450); Eosinophils Percent Auto 2.3 % (2-4); Hemoglobin 13.5 g/dL (13.5-17.5); Lymphocytes Absolute Auto 800 /uL (1100-4500); Lymphocytes Percent Auto 13.1 % (25-40); Mean Corpuscular HGB Conc 34.6 % (30-36); Mean Corpuscular Hemoglobin 32.8 PG (26-34); Mean Corpuscular Volume 94.7 fL (80-100); Monocytes Absolute Auto 600 /uL (0-900); Monocytes Percent Auto 9.9 % (3-14); Neutrophils Absolute Auto 4500 /uL (1500-7000); Neutrophils Percent Auto 73.9 % (50-75); Platelet Count 123 X10^3/uL (150-400); Red Blood Cell Count 4.12 X10^6/uL (4.5-5.9); Red Cell Distribution Width 12.9 % (11.6-14.8); White Blood Cell Count 6.1 X10^3/uL (4.5-11.0)
--- NOTE | 2021-05-14 23:48 | ED_ITS ---
HPI - Neuro Symptoms/Deficit General Chief Complaint: Neuro Symptoms/Deficit Stated Complaint: Code stroke Time Seen by Provider: 05/14/21 23:29 Source: patient and EMS Mode of arrival: EMS History of Present Illness HPI Narrative: Patient is a 80-year-old male. Arrived by EMS as a code stroke for evaluation of left-sided deficits. Reported symptoms occurred at 2215 hours. EMS reports they were called by the patient's . It was reported that the patient was at his normal state health. He stood up. Apparently became lightheaded. He did stumble. Unsure as to whether not his fall was partially blocked by his for the patient actually fell. There were no reports of any head injuries. No reports of any loss of consciousness. Per report from EMS they were told that shortly after the event the patient was having left-sided deficits. In route to the emergency department IVs were started. Had a blood sugar 104. EMS reports that in route he had complete left-sided arm and leg deficits. Is also concerned about slurring of words. There is no reports of any anticoagulation. He has had ?several ?strokes in the past. Unsure if he has any baseline deficits from this. There reports that he has dementia. Patient immediately taken to the CT scanner upon arrival. He was moving his left side in the CT scanner which per EMS report is somewhat of an improvement from the ambulance ride here. Upon my evaluation patient denied headache, vision changes, chest pain, shortness of breath, abdominal pain, nausea vomiting. He was little unsure as to circumstances regarding his presentation here to the ER. He was u nable to provide any information regarding a fall. He does report weakness on his left side. He also reports ?coordination ?issues with his left side. On Anticoagulants: No Related Data Home Medications Medication Instructions Recorded Confirmed aspirin 81 mg tablet,delayed 81 mg PO DAILY 11/25/18 05/15/21 release (Adult Low Dose Aspirin) lisinopril 20 mg tablet 20 mg PO DAILY 11/25/18 05/15/21 simvastatin 20 mg tablet 20 mg PO DAILY 11/25/18 05/15/21 metoprolol succinate 50 mg 50 mg PO DAILY 05/23/19 05/15/21 tablet,extended release 24 hr memantine 10 mg tablet 10 mg PO BID 05/15/21 05/15/21 Allergies Allergy/AdvReac Type Severity Reaction Status Date / Time No Known Drug Allergies Allergy Verified 05/07/21 10:39 Review of Systems Review of Systems ROS Unobtainable: All systems reviewed & are unremarkable except as noted in HPI and below Constitutional Constitutional: Denies chills, Denies fever(s) and Denies headache(s) Eyes Eyes: Denies blurry vision and Denies change in vision ENT Ears, Nose, Mouth, and Throat: Denies headache(s) Cardiovascular Cardiovascular: Denies chest pain and Denies dyspnea Respiratory Respiratory: Denies dyspnea Gastrointestinal Gastrointestinal: Denies abdominal pain, Reports nausea and Denies vomiting Genitourinary Genitourinary: Reports system reviewed and no additional complaints, except as documented Musculoskeletal Musculoskeletal: Reports as per HPI, Denies arthralgias, Denies back pain, Reports muscle weakness and Denies numbness Integumentary/Breasts Skin/Breast: Reports system reviewed and no additional complaints, except as documented and Reports as per HPI Neurologic Neurologic: Reports system reviewed and no additional complaints, except as documented, Reports as per HPI, Denies headache(s) and Denies numbness Psychiatric Psychiatric: Reports system reviewed and no additional complaints, except as documented Hematologic/Lymphatic On Anticoagulants: No Allergic/Immunologic Allergic/Immunologic: Reports system reviewed and no additional complaints, except as documented Patient History Medical History Atrial fibrillation with controlled ventricular rate BPH (benign prostatic hyperplasia) Cataract (lens) fragments in eye following cataract surgery, bilateral Hyperlipidemia Hypertension 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 Obesity (BMI 30-39.9) Obstructive sleep apnea Vascular dementia Surgical History H/O hernia repair History of tonsillectomy Hx laparoscopic cholecystectomy Hx of transurethral resection of prostate Family History (Updated 05/15/21 @ 03:22 by MILAGROS Gray) Mother Congestive heart failure Father Cancer Social History marital status: household members: spouse and children Smoking Status: Former smoker alcohol intake: current Smoking Status: Former smoker alcohol intake frequency: a few times a week Substance Use Type: does not use Exam Initial Vital Signs Initial Vital Signs: Vital Signs Temperature 98.4 F 05/14/21 23:37 Pulse Rate 86 05/14/21 23:37 Respiratory Rate 22 05/14/21 23:37 Blood Pressure 245/120 H 05/14/21 23:37 Pulse Oximetry 97 05/14/21 23:37 Const General: cooperative, comfortable, well developed and well groomed [facility] Head: normal to inspection and normocephalic Eyes General: appearance normal, both eyes and all related structures Pupils: PERRL Chest Chest: No crepitus Resp Effort & Inspection: normal respiratory effort Auscultation: clear to auscultation bilaterally Cardio Rate: regular rate Rhythm: regular rhythm GI Inspection: normal to inspection Palpation: soft and No tender External: normal external exam Skin General: no rashes or lesions noted Neuro General: patient alert and patient awake Extrem General: normal to inspection and capillary refill normal Psych Appearance: grossly normal and well kempt Scores NIH Stroke Scale Level of Conciousness: Alert, keenly responsive Ask month/age: Answers neither question correctly, aphasic, stuporous, coma Open/close eyes, close hand: Performs both tasks correctly Best gaze horizontal: Normal Visual nieto: Partial hemianopia Facial palsy: Normal symetrical movement Left arm drift: No drift for full 10 sec Right arm drift: No drift for full 10 sec Left leg drift: Some effort against gravity, cannot maintain, drifts down to bed Right leg drift: No drift for full 5 sec Limb ataxia: Absent Sensory on face/arms/legs: Normal, no sensory loss Best language: Mild to moderate, slurs some words Dysarthria: Mild to mod,some slurring Extinction or inattention: No abnormality Total NIH Stroke scale score: 7 Course Orders Ordered: ED Orders 05/14/21 23:28 CT Stroke Stat 05/14/21 23:29 CT angio head and neck Stat 05/14/21 23:30 Complete Blood Count AUTO DIFF Stat Comprehensive Metabolic Panel Stat Ethanol (ETOH) Stat Lipase Stat Magnesium Stat Partial Thromboplastin Time Stat Prothrombin Time INR Stat Troponin & CK Cardiac Panel Stat 05/14/21 23:31 EKG-12 Lead Stat 05/14/21 23:47 COVID19 - ADMIT ([employer] INSPECTOR swab/PCR) Stat Urinalysis and Microscopic Stat 05/15/21 Consult to Tele-microbiology quality control technician Stat NT-proBNP (BNP-Adult 18+) Urgent 05/15/21 02:05 Consult to Discharge Planning Routine Consult to Occupational Therapy Evaluate & Treat Consult to Physical Therapy Evaluate & Treat Consult to Speech Therapy Evaluate & Treat MR stroke Stat Education, smoking cessation ONGOING 05/15/21 02:09 Hemoglobin A1C% w Est Avg Glu Urgent Thyroid Stimulating Hormone Urgent 05/15/21 02:11 EC echo doppler complete Urgent 05/15/21 02:13 Education, smoking cessation ONGOING 05/15/21 05:00 Basic Metabolic Panel Routine Lipid Panel Routine Magnesium Routine Troponin I Routine Acetaminophen (Acetaminophen 325 Mg Tablet) 650 mg PO Q6HR PRN PRN Reason: Fever Aspirin (Aspirin Ec 81 Mg Tablet) 81 mg PO DAILY ROSIE Atorvastatin Calcium (Atorvastatin 20 Mg Tablet) 80 mg PO BEDTIME ROSIE Enoxaparin Sodium (Enoxaparin 40 Mg/0.4 Ml Syringe) 40 mg SUBCUT DAILY ROSIE Sodium Chloride (Normal Saline 0.9%) 1,000 mls @ 125 mls/hr IV CONT ROSIE Last Admin: 05/14/21 23:50 Dose: 125 mls/hr Documented by: ABUNDIO Nicardipine HCl 25 mg/ Sodium (Chloride) 250 mls @ 50 mls/hr IV TITRATE ROSIE; Protocol Last Titration: 05/15/21 02:25 Dose: 0 mg/hr, 0 mls/hr Documented by: Titration: 05/15/21 01:02 Dose: 3 mg/hr, 30 mls/hr Documented by: Titration: 05/15/21 00:28 Dose: 7.5 mg/hr, 75 mls/hr Documented by: Admin: 05/15/21 00:17 Dose: 5 mg/hr, 50 mls/hr Documented by: CARMELA Lisinopril (Lisinopril 20 Mg Tablet) 20 mg PO DAILY [facility] Memantine (Memantine Hcl 5 Mg Tablet) 10 mg PO BID [facility] Metoprolol Succinate (Metoprolol Er 50 Mg Tablet) 50 mg PO DAILY [facility] Naloxone HCl (Naloxone 0.4 Mg/Ml Vial) 0.2 mg IV Q2MIN PRN PRN Reason: Opiate Reversal Ondansetron HCl (Ondansetron 4 Mg/2 Ml Inj) 4 mg IV Q4HR ROSIE Discontinued Medications Aspirin (Aspirin 325 Mg Tablet) 325 mg PO NOW ONE Stop: 05/15/21 00:53 Last Admin: 05/15/21 01:07 Dose: Not Given Documented by: CARMELA Aspirin (Aspirin 81 Mg Chew Tab) 324 mg PO NOW ONE Stop: 05/15/21 01:06 Last Admin: 05/15/21 01:06 Dose: 324 mg Documented by: CARMELA Labetalol HCl (Labetalol 20 Mg/4 Ml Syringe) 10 mg IV NOW ONE Stop: 05/14/21 23:52 Last Admin: 05/14/21 23:57 Dose: 10 mg Documented by: ABUNDIO Ondansetron HCl (Ondansetron 4 Mg/2 Ml Inj) 4 mg IV NOW ONE Stop: 05/15/21 00:10 Last Admin: 05/15/21 00:18 Dose: 4 mg Documented by: CARMELA Ondansetron HCl (Ondansetron 4 Mg/2 Ml Inj) 4 mg IV NOW ONE Stop: 05/15/21 00:55 Last Admin: 05/15/21 00:55 Dose: 4 mg Documented by: CARMELA Vital Signs Vital signs: Vital Signs - 8 hr 05/14/21 23:37 05/14/21 23:38 05/14/21 23:43 Temperature 98.4 F Pulse Rate 86 93 H 88 Respiratory Rate 22 22 22 Blood Pressure 245/120 H 245/120 H 245/120 H Pulse Oximetry 97 98 05/14/21 23:44 05/14/21 23:50 05/14/21 23:57 Temperature Pulse Rate 85 84 84 Respiratory Rate 22 19 Blood Pressure 244/117 H 224/109 H 224/109 H Pulse Oximetry 96 98 05/15/21 00:00 05/15/21 00:02 05/15/21 00:05 Temperature Pulse Rate 83 80 80 Respiratory Rate 14 15 20 Blood Pressure 228/111 H Pulse Oximetry 95 97 94 05/15/21 00:10 05/15/21 00:15 05/15/21 00:20 Temperature Pulse Rate 78 80 78 Respiratory Rate 19 19 21 Blood Pressure Pulse Oximetry 96 96 05/15/21 00:22 05/15/21 00:25 05/15/21 00:30 Temperature Pulse Rate 81 80 79 Respiratory Rate 24 16 15 Blood Pressure 221/110 H 215/104 H Pulse Oximetry 96 98 97 05/15/21 00:35 05/15/21 00:36 05/15/21 00:40 Temperature Pulse Rate 83 82 88 Respiratory Rate 16 15 21 Blood Pressure 190/85 H 182/86 H Pulse Oximetry 97 97 95 05/15/21 00:45 05/15/21 00:50 05/15/21 00:55 Temperature Pulse Rate 80 102 H 86 Respiratory Rate 21 24 20 Blood Pressure 182/88 H Pulse Oximetry 95 96 94 05/15/21 01:00 05/15/21 01:05 05/15/21 01:07 Temperature Pulse Rate 85 84 84 Respiratory Rate 23 18 Blood Pressure 164/75 H 167/80 H 221/110 H Pulse Oximetry 96 95 05/15/21 01:10 05/15/21 01:15 05/15/21 01:20 Temperature Pulse Rate 86 84 98 H Respiratory Rate 16 19 19 Blood Pressure 176/83 H 176/84 H Pulse Oximetry 95 95 96 05/15/21 01:21 05/15/21 01:25 05/15/21 01:30 Temperature Pulse Rate 92 H 82 81 Respiratory Rate 24 16 18 Blood Pressure 201/93 H 180/75 H 177/86 H Pulse Oximetry 96 96 96 05/15/21 01:35 05/15/21 01:40 05/15/21 01:45 Temperature Pulse Rate 81 85 85 Respiratory Rate 17 18 20 Blood Pressure 173/81 H Pulse Oximetry 93 96 97 05/15/21 01:50 05/15/21 01:55 05/15/21 02:00 Temperature Pulse Rate 85 82 85 Respiratory Rate 18 16 21 Blood Pressure 176/84 H Pulse Oximetry 98 95 97 05/15/21 02:05 05/15/21 02:10 05/15/21 02:15 Temperature Pulse Rate 87 82 82 Respiratory Rate 18 17 17 Blood Pressure 172/81 H Pulse Oximetry 97 95 95 05/15/21 02:20 05/15/21 02:25 05/15/21 02:30 Temperature Pulse Rate 82 94 H 80 Respiratory Rate 16 35 H 18 Blood Pressure 185/89 H Pulse Oximetry 95 97 93 05/15/21 02:35 05/15/21 02:40 05/15/21 02:45 Temperature Pulse Rate 84 79 92 H Respiratory Rate 22 19 21 Blood Pressure Pulse Oximetry 97 94 95 05/15/21 02:47 05/15/21 02:50 05/15/21 02:55 Temperature Pulse Rate 81 77 77 Respiratory Rate 15 16 18 Blood Pressure 186/89 H Pulse Oximetry 94 94 94 MDM - Neuro Symptoms/Deficit Lab Data Attestation: I reviewed the patient's lab results. Result diagrams: 05/14/21 23:30 05/14/21 23:30 Labs: Lab Results 05/14/21 05/14/21 05/14/21 Range/Units 23:30 23:30 23:30 WBC 6.1 (4.5-11.0) X10^3/uL RBC 4.12 L (4.5-5.9) X10^6/uL Hgb 13.5 (13.5-17.5) g/dL Hct 39.0 L (41-53) % MCV 94.7 (80-100) fL MCH 32.8 (26-34) PG MCHC 34.6 (30-36) % RDW 12.9 (11.6-14.8) % Plt Count 123 L (150-400) X10^3/uL Neut % (Auto) 73.9 (50-75) % Lymph % (Auto) 13.1 L (25-40) % [place] % (Auto) 9.9 (3-14) % Eos % (Auto) 2.3 (2-4) % Baso % (Auto) 0.8 (0-2) % Neut # (Auto) 4500 (0280-0647) /uL Lymph # (Auto) 800 L (9439-2942) /uL [place] # (Auto) 600 (0-900) /uL Eos # (Auto) 100 (0-450) /uL Baso # (Auto) 100 (0-100) /uL PT 11.7 (10.1-12.7) SECONDS INR 1.1 (0.9-1.3) APTT 36 (26.4-36.2) SECONDS Sodium 136 L (137-145) mmol/L Potassium 3.4 (3.4-5.1) mmol/L Chloride 103 (98-107) mmol/L Carbon Dioxide 29 (22-32) mmol/L BUN 21 H (9-20) mg/dL Creatinine 0.74 (0.66-1.25) mg/dL Estimated GFR > 60.0 (>60) mL/min BUN/Creatinine Ratio 28.4 H (6-22) Glucose 138 H (80-110) mg/dL Calcium 9.1 (8.4-10.2) mg/dL Magnesium 1.9 (1.6-2.3) mg/dL Total Bilirubin 0.5 (0.2-1.3) mg/dL AST 37 (17-59) IU/L ALT 30 (<50) IU/L Alkaline Phosphatase 92 (38-126) U/L Total Creatine Kinase 98 (55-170) U/L CK-MB (CK-2) TNP CK-MB (CK-2) Rel Index TNP Troponin I < 0.012 (0.01-0.034) ng/mL NT-Pro-B Natriuret Pep (<450) pg/mL Total Protein 6.8 (6.3-8.2) g/dL Albumin 3.9 (3.5-5.0) g/dL Globulin 2.9 (1.7-4.1) g/dL Albumin/Globulin Ratio 1.3 (1.0-2.8) Lipase 87 (23-300) U/L Urine Color Urine Appearance Urine pH (4.5-8.0) Ur Specific [place] (1.000-1.035) Urine Protein (Negative) Urine Glucose (UA) (Negative) g/dL Urine Ketones (NEGATIVE) Urine Occult Blood (Negative) Urine Nitrate (Negative) Urine Bilirubin (NEGATIVE) Urine Urobilinogen (0.2) E.U./dL Ur Leukocyte Esterase (NEGATIVE) Urine RBC (0-5/HPF) Urine WBC (0-5/HPF) Urine Bacteria (None) Ur Culture Indicated? Ethyl Alcohol < 10 ( - 10) mg/dL SARS-CoV-2 (PCR) (Negative) 05/14/21 05/14/21 05/14/21 Range/Units 23:30 23:47 23:47 WBC (4.5-11.0) X10^3/uL RBC (4.5-5.9) X10^6/uL Hgb (13.5-17.5) g/dL Hct (41-53) % MCV (80-100) fL MCH (26-34) PG MCHC (30-36) % RDW (11.6-14.8) % Plt Count (150-400) X10^3/uL Neut % (Auto) (50-75) % Lymph % (Auto) (25-40) % [place] % (Auto) (3-14) % Eos % (Auto) (2-4) % Baso % (Auto) (0-2) % Neut # (Auto) (0408-9452) /uL Lymph # (Auto) (6041-0593) /uL [place] # (Auto) (0-900) /uL Eos # (Auto) (0-450) /uL Baso # (Auto) (0-100) /uL PT (10.1-12.7) SECONDS INR (0.9-1.3) APTT (26.4-36.2) SECONDS Sodium (137-145) mmol/L Potassium (3.4-5.1) mmol/L Chloride (98-107) mmol/L Carbon Dioxide (22-32) mmol/L BUN (9-20) mg/dL Creatinine (0.66-1.25) mg/dL Estimated GFR (>60) mL/min BUN/Creatinine Ratio (6-22) Glucose (80-110) mg/dL Calcium (8.4-10.2) mg/dL Magnesium (1.6-2.3) mg/dL Total Bilirubin (0.2-1.3) mg/dL AST (17-59) IU/L ALT (<50) IU/L Alkaline Phosphatase (38-126) U/L Total Creatine Kinase (55-170) U/L CK-MB (CK-2) CK-MB (CK-2) Rel Index Troponin I (0.01-0.034) ng/mL NT-Pro-B Natriuret Pep 189 (<450) pg/mL Total Protein (6.3-8.2) g/dL Albumin (3.5-5.0) g/dL Globulin (1.7-4.1) g/dL Albumin/Globulin Ratio (1.0-2.8) Lipase (23-300) U/L Urine Color Yellow Urine Appearance Clear Urine pH 7.5 (4.5-8.0) Ur Specific [place] 1.020 (1.000-1.035) Urine Protein 2+ H (Negative) Urine Glucose (UA) Negative (Negative) g/dL Urine Ketones Negative (NEGATIVE) Urine Occult Blood Trace-lysed (Negative) Urine Nitrate Negative (Negative) Urine Bilirubin Negative (NEGATIVE) Urine Urobilinogen 0.2 (0.2) E.U./dL Ur Leukocyte Esterase Negative (NEGATIVE) Urine RBC None seen (0-5/HPF) Urine WBC None seen (0-5/HPF) Urine Bacteria None seen (None) Ur Culture Indicated? Cult not indicated Ethyl Alcohol ( - 10) mg/dL SARS-CoV-2 (PCR) Negative (Negative) Point of Care Testing Glucose POC [address] scan - head: Radiologist's Impression: [address] [address] [address] Scan Report Signed Patient: Robbin Peña MR#: [id number] : 1940 Acct:[id number] Age/Sex: 80 / M Date of Service: 05/14/21 Loc: ED Accession Number: [id number] ?? Procedure: CT Stroke Ordering Provider: Won Bradley D.O. PROCEDURE:? CT STROKE ? INDICATIONS:? code stroke ? TECHNIQUE:? Noncontrast 4.5 mm thick angled axial sections acquired from the foramen magnum to the vertex, with coronal reformats.? For radiation dose reduction, the following was used:? automated exposure control, adjustment of mA and/or kV according to patient size.? ? COMPARISON:? [facility], MR, MR HEAD/BRAIN WO CON, 07/23/2020, 13:32. ? FINDINGS:? Image quality:? Excellent.? ? CSF spaces:? Basal cisterns are patent.? No extra-axial fluid collections.? Ventricles are normal in size and shape.? ? Brain:? No midline shift.? No intracranial masses or hemorrhage.? Grant-white matter interface is normal.? Remote infarct in the right subcortical frontoparietal lobe. ? Subcortical and periventricular white matter hypodensities are consistent with microvascular ischemic disease.? Severe vascular calcifications are seen in the vertebrobasilar arteries and the intracranial ICAs. ? Skull and face:? Calvarium and visualized facial bones are intact, without suspicious lesions.? ? Sinuses:? Visualized sinuses and mastoids are clear.? ? IMPRESSION:? 1. No acute intracranial abnormality. 2. Remote right frontoparietal infarct. 3. Microvascular ischemic disease and diffuse atrophy.? ? Findings were discussed with Dr. Bradley at 23:52. ? This study fulfills neurological imaging criteria for inclusion or exclusion of acute stroke therapies based on available published neurological imaging guidelines.? ? ? Dictated by: Juan Gonzalez M.D. on 05/14/2021 at 23:47 ? ? Approved by: Juan Gonzalez M.D. on 05/14/2021 at 23:51?? CTA - brain/neck: Radiologist's Impression: [address] [address] [address] Scan Report Signed Patient: Robbin Peña MR#: [id number] : 1940 Acct:[id number] Age/Sex: 80 / M Date of Service: 05/14/21 Loc: ED Accession Number: [id number] ?? Procedure: CT angio head and neck Ordering Provider: Won Bradley D.O. PROCEDURE:? CT ANGIO HEAD AND NECK ? INDICATIONS:? code stroke ? TECHNIQUE:? ? After the administration of intravenous contrast, 1 mm thick sections acquired from the aortic arch through the [place] of [place].? Post-contrast 4.5 mm thick sections then re-acquired from the foramen magnum to the vertex.? 3-dimensional wctuxrt-sezpfxwth-ziegwxmflx (MIP) and/or volume rendering reformats were acquired of the central intracranial vasculature and neck separately. ? COMPARISON:? None. ? FINDINGS:? Image quality:? Excellent.? ? BRAIN:? CSF spaces:? Ventricles are normal in size and shape.? Basal cisterns are patent.? No extra-axial fluid collections. ? Subcortical and periventricular white matter hypodensities are consistent with microvascular ischemic disease.? There is a remote infarct in the right subcortical frontoparietal lobe. ? Brain:? No midline shift.? No intracranial bleeds or masses.? [place]-white matter interface appears intact.? ? Skull and face:? Calvarium and facial bones appear intact, without suspicious lesions.? Orbits appear normal.? ? Sinuses:? Sinuses and mastoids are clear.? ? HEAD CT ANGIOGRAPHY:? Anterior circulation:? The intracranial ICAs have severe atherosclerotic calcifications in the cavernous portions causing approximately 70% stenosis bilaterally.? Both MCAs and ACAs are patent with this. ? Posterior circulation:? The right intracranial vertebral artery has severe atherosclerotic calcifications causing 90% stenosis.? The left vertebral artery is non dominant and miniscule.? The vertebral artery is patent.? The right has a thrombus just distal to the bifurcation.? The left HANGAR ATTENDANT is patent. ? NECK CT ANGIOGRAPHY:? Carotid system:? The great vessels demonstrate a conventional anatomy as they arise from the aortic arch.? The origins of the common carotid arteries appear patent.? The common carotid arteries demonstrate diffuse atherosclerotic calcifications but are normal caliber and courses.? The bifurcation regions are both patent with no significant stenosis.? The internal carotid arteries demonstrate normal calibers and courses.? ? Posterior circulation:? The origins of the vertebral arteries both appear widely patent.? The more superior extracranial portions of both vertebral arteries also demonstrate normal courses and calibers.? They join to form a normal appearing basilar artery.? ? Soft tissues:? There is a 1.8 cm sebaceous cyst in the posterior occiput/upper neck in the midline.? Visualized neck soft tissues demonstrate no suspicious abnormalities.? ? Bones:? No suspicious bony lesions.? Visualized cervical spine appears normally aligned.? ? ? IMPRESSION:? 1. Thrombus in the right proximal HANGAR ATTENDANT just distal to the bifurcation. 2. 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 3. Severe atherosclerotic calcifications in both intracranial ICAs with approximately 70% stenosis bilaterally. 4. Atherosclerotic disease of both carotid arteries with no significant stenosis.? ? Any quantitative measurements of stenosis were performed using NASCET criteria.? ? ? Findings were discussed with the emergency department at 01:25 on 05/15/[address] [place] [address] Bradley ? Dictated by: Juan Gonzalez M.D. on 05/15/2021 at 1:12 ? ? Approved by: Juan Gonzalez M.D. on 05/15/2021 at 1:30?? ECG Data Attestation: I personally reviewed and interpreted this ECG as follows: Prior ECG tracings: available for review Interpretation: Sinus rhythm Ventricular rate is 78 Right bundle-branch block QRS 172 milliseconds QTC [address] T wave changes MDM Narrative Medical decision making narrative: Patient arrived within the window tPA. CT scan of the head shows no acute pathology however does show age-related changes and also the old infarct. There is no reports of any use of anticoagulation. There are reports of history of atrial fibrillation but he is not in atrial fibrillation currently. Unsure as to what his baseline mental status is. He obviously has left leg weakness which the patient states is not normal for him. He also reports coordination issues with his left upper extremity but is able to do finger to nose. Patient was significantly hypertensive. Was given labetalol with minimal with any effect. Was started on a nicardipine drip. Tele stroke ( Dr jean)was consulted. They evaluated the patient through the monitor and care arrived in the room. They discussion with the patient regarding the use of tPA. The patient expressed understanding the risks and benefits of this and was open for the use of tPA however the patient's blood pressure at the time was not within parameters. Approximately 30 minutes after starting the nicardipine drip the patient reported resolution of her symptoms. Re-evaluation shows that the patient now has no issues with finger to nose with his left upper extremity and is able to lift his left leg off the bed and reports that he is back at baseline. His eventually arrived at bedside and stated that the speech issues that we were noticing is normal for him. Given the elevated blood pressure and the resolution of symptoms decision was made to hold on any tPA. There was some delay in obtaining the CTA resolved. This did show a thrombus in the right proximal HANGAR ATTENDANT. I re-contacted tele stroke and once again discussed the findings of the CTA. Given presentation, resolution of symptoms, the fact that it was a posterior thrombus Dr. Jean felt that it would be unlikely that Interventional Radiology would perform any sort of intervention with these findings. He recommended continue with admission, auto regulation of his blood pressure with a goal of maintaining a systolic under 200, administering aspirin which was done here in the ER. I did discuss all this with the patient and his son and his were at bedside in the expressed understanding of this as well. Had a discussion with the patient and he does wish to be DNR/DNI. Discussed the case with FAB Webster the api healthcare provider who will admit for further evaluation and treatment. Critical Care Time Critical Care Time Critical Care Time: Yes Total Critical Care Time: 35 Attestation: The high probability of a clinically significant, sudden or life threatening deterioration of the neurologic system(s) required my full and direct attention, intervention and personal management. The aggregate critical care time was [35] minutes. This time is in addition to time spent performing reported procedures but includes the following: [x] Data Review and interpretation [x] Patient assessment and monitoring of vital signs x[] Documentation [x] Medication orders and management Discharge Plan Departure Patient Disposition: Admitted As Inpatient Clinical Impression: Hypertension, Cerebrovascular accident
[2021-05-14 23:50] VITALS: BP 224/109; PULSE 84; RESP 19; O2SAT 98
[2021-05-14] MEDS: SODIUM CHLORIDE 0.9% 1,000 ML 125 ML IV (23:50)
--- NOTE | 2021-05-14 23:50 | PC.NURSE ---
Telestroke initiated They are paging a Dr. Suarez
[2021-05-14 23:53] LABS: INR 1.1 (0.9-1.3); Prothrombin Time 11.7 SECONDS (10.1-12.7)
[2021-05-14 23:57] VITALS: BP 224/109; PULSE 84
[2021-05-14 23:57] LABS: Ethanol (ETOH) < 10 mg/dL
[2021-05-14] MEDS: LABETALOL 20 MG/4 ML SYRINGE 10 MG IV (23:57)
[2021-05-14 23:58] LABS: Alanine Aminotransferase 30 IU/L (<50); Albumin 3.9 g/dL (3.5-5.0); Albumin Globulin Ratio 1.3 (1.0-2.8); Alkaline Phosphatase 92 U/L (38-126); Aspartate Aminotransferase 37 IU/L (17-59); BUN Creatinine Ratio 28.4 (6-22); Bilirubin Total 0.5 mg/dL (0.2-1.3); Blood Urea Nitrogen 21 mg/dL (9-20); Calcium 9.1 mg/dL (8.4-10.2); Carbon Dioxide 29 mmol/L (22-32); Chloride 103 mmol/L (98-107); Creatine Kinase 98 U/L (55-170); Estimated Glomerular Filt Rate > 60.0 mL/min (>60); Globulin 2.9 g/dL (1.7-4.1); Glucose 138 mg/dL (80-110); HEMOLYSIS 15 (0-50); Lipase 87 U/L (23-300); Magnesium 1.9 mg/dL (1.6-2.3); Potassium 3.4 mmol/L (3.4-5.1); Sodium 136 mmol/L (137-145); Total Protein 6.8 g/dL (6.3-8.2)
[2021-05-15] VITALS (57 sets, daily range): BP systolic 164–228; BP diastolic 73–111; PULSE 55–102; RESP 14–35; TEMP 36.4–37.2; O2SAT 93–98; BMI 31.5
[2021-05-15 00:01] LABS: PTT Partial Thromboplastin Tim 36 SECONDS (26.4-36.2)
[2021-05-15 00:02] LABS: Appearance Urine UA CLEAR; Bilirubin Urine UA NEGATIVE (NEGATIVE); Color Urine UA YELLOW; Glucose Urine UA NEGATIVE (Negative); Ketones Urine UA NEGATIVE (NEGATIVE); Leukocyte Esterase Urine UA NEGATIVE (NEGATIVE); Nitrite Urine UA NEGATIVE (Negative); Occult Blood Urine UA TRACE-LYSED (Negative); Protein Urine UA 2+ (Negative); Urobilinogen Urine UA 0.2 E.U./dL (0.2); pH Urine UA 7.5 (4.5-8.0)
[2021-05-15 00:10] LABS: Troponin I < 0.012 ng/mL (0.01-0.034)
[2021-05-15] MEDS: NICARDIPINE 25 MG in SODIUM CHLORIDE 0.9% 240 ML 50 ML IV (00:17)
[2021-05-15] MEDS: ONDANSETRON 4 MG/2 ML INJ IV ×2 (00:18→00:55)
[2021-05-15 00:41] LABS: Bacteria Urine None Seen; Culture Indicated Urine Cult Not Indicated; RBC Urine None Seen (0-5/HPF); WBC Urine None Seen (0-5/HPF)
[2021-05-15 00:57] LABS: COVID19 - ADMIT (NP swab/PCR) Negative (Negative)
[2021-05-15] MEDS: ASPIRIN 81 MG CHEW TAB 324 MG PO (01:06)
--- NOTE | 2021-05-15 02:05 | DI.MRI.S_ITS ---
PROCEDURE: MR HEAD/BRAIN WO CON INDICATIONS: Stroke r/o TECHNIQUE: Non-contrast axial T1 spin echo, axial T2 fast spin echo, sagittal and axial FLAIR, coronal T2 fast spin echo, axial gradient echo, axial diffusion and ADC through the brain. COMPARISON: [facility], MR, MR HEAD/BRAIN WO CON, 07/23/2020, 13:32. [facility], CT, CT STROKE, 05/14/2021, 23:30. FINDINGS: Image quality: Excellent. CSF spaces: Ventricles appear symmetric in size and shape. Basal cisterns are patent. No extra-axial fluid collections. Brain: No intracranial bleeds or mass effects. There is cerebral volume loss for age. There are periventricular and deep white matter chronic small vessel ischemic changes. Brainstem appears normal. New foci of restricted diffusion noted in the right posterior caudate body/pittman radiata, the left occipital lobe and the right cerebellar hemisphere. Small right frontal chronic infarct with surrounding gliosis noted. Small chronic lacunar infarcts noted in the right pittman radiata and centrum semiovale. Single punctate focus of susceptibility artifact noted in the left parietal periventricular white matter which has developed in the interval since the prior examination. Punctate susceptibility artifact likely represents area chronic petechial hemorrhage. Normal intravascular flow voids are present. Skull and face: Calvarial bone marrow is normal in signal. Orbits are normal. Partially visualized 1.6 centimeter cutaneous/subcutaneous occipital scalp cystic lesion noted which may represent sebaceous cyst. Sinuses: Sinuses and mastoids are clear. IMPRESSION: 1. Acute infarcts involving the right cerebellar hemisphere, right caudate body/pittman radiata and the left occipital lobe. 2. Chronic infarcts involving the right frontal lobe, right pittman radiata in the right centrum semiovale. 3. No acute intracranial hemorrhage. Dictated by: Lis Carmona MD, PhD on 05/15/2021 at 8:51 Approved by: Lis Carmona MD, PhD on 05/15/2021 at 8:57
--- NOTE | 2021-05-15 02:11 | DI.ECHO.S_ITS ---
[facility] +---------+ : : [address] [place] : : : : [id number] : : : : Phone: [phone] Echocardiogram Report + + :Name: LOBO FREITAS Study Date: 05/15/2021 Height: 72 in : :[facility] ReadingLocation: Weight: 249 lb : : Gender: Male BSA: 2.3 m2 : :: 1940 Age: 80 yrs BP: 164/79 mmHg: :Reason For Study: Stroke : : Performed By: Tien Long : :Referring: PENNIE GAMEZ : + + Interpretation Summary 1) Mildly increased left ventricular thickness (concentric) with normal size, normal wall motion, and normal systolic function (EF 60-65%). 2) Mildly enlarged right ventricular size with normal function. 3) There is mild aortic valve sclerosis. 4) There is mild aortic regurgitation. 5) Hypertension persent during the study (BP 164/79mm Hg). 6) Compared to the Echo done 11/26/2018, LVEF has increased from 45-50% to 55- 60% on this study. Procedure: A two-dimensional transthoracic echocardiogram with color flow and Doppler was performed. The study quality was technically adequate. Comparison is made with the echocardiogram of 11/26/2018. The patient was in normal sinus rhythm during the exam. The patient had a bundle branch block rhythm during the exam. Left Ventricle: The left ventricle is normal in size. There is mild concentric left ventricular hypertrophy. The ejection fraction is estimated to be 55-60%. Left ventricular systolic function appears normal without focal wall motion abnormalities. Diastolic parameters suggest a relaxation abnormality of the left ventricle, consistent with probable normal filling pressures. Right Ventricle: The right ventricle is mildly dilated. The right ventricular systolic function is normal. Atria: The left atrium is moderately dilated. Right atrial size is normal. There is no Doppler evidence for an interatrial shunt. Mitral Valve: The mitral valve leaflets appear borderline thickened, but open well. There is trace mitral regurgitation. Aortic Valve: The aortic valve is trileaflet. The aortic valve opens well. There is mildly reduced leaflet mobility. There is mild aortic valve sclerosis. There is no aortic valve stenosis. There is mild aortic regurgitation. Tricuspid Valve: The tricuspid valve is normal. There is mild tricuspid regurgitation. The right ventricular systolic pressure is estimated to be at least 29 mmHg based on an estimated right atrial pressure of 3 mm Hg. Pulmonic Valve: The pulmonic valve is not well seen, but is grossly normal. Great Vessels: The aortic root is normal size. The ascending aorta is normal in size. The aortic arch is normal in size. The IVC is of normal diameter and collapses greater than 50% with a sniff. This suggests a low right atrial pressure of 3 mm Hg. Pericardium/ Pleura There is no pericardial effusion. There is an anterior echo-free space consistent with a fat pad. There is no pleural effusion. MMode/2D Measurements & Calculations LVIDd: 4.9 cm LVOT diam: 2.3 cm LVIDs: 3.6 cm Ao root diam: 3.7 cm FS: 27.1 % asc Aorta Diam: 3.8 cm IVSd: 1.2 cm Ao Arch Diam (Prox Trans): 2.7 cm LVPWd: 1.4 cm LV lopez. diameter/BSA (cm/m^2): 2.1 LV sys. diameter/BSA (cm/m^2): 1.5 LA A2 area: 34.6 cm2 RA long axis: 4.5 cm LA A4 area: 22.1 cm2 RA area: 12.0 cm2 LA length (vol): 5.9 cm RA vol: 27.2 ml LA vol: 109.1 ml RA : 11.6 ml/m2 LA vol index: 46.7 ml/m2 IVC diam: 2.0 cm TAPSE: 2.1 cm Doppler Measurements & Calculations Ao V2 max: 157.0 cm/sec LVOT Max Red: 78.9 cm/sec Ao V2 mean: 119.5 cm/sec LV V1 max P.5 mmHg Ao max P.9 mmHg LV V1 VTI: 18.1 cm Ao mean P.1 mmHg SLIME(I,D): 2.1 cm2 Ao V2 VTI: 37.5 cm SLIME(V,D): 2.1 cm2 sev ratio: 0.48 SLIME indexed to BSA (cm^2/m^2): 0.88 MV E max red: 90.1 cm/sec TR max red: 254.1 cm/sec MV A max red: 109.8 cm/sec TR max P.8 mmHg MV E/A: 0.82 Med Peak E' Red: 6.7 cm/sec E/E' med: 13.5 Lat Peak E' Red: 9.3 cm/sec E/E' lat: 9.6 E/e' average: 11.6 MV dec time: 0.27 sec SV(LVOT): 77.0 ml Reading Physician:04:03 PM
--- NOTE | 2021-05-15 02:52 | P.HP_ITS ---
History of Present Illness History of Present Illness Date Patient Seen: 05/15/21 Time Patient Seen: 02:04 Chief complaint: Code stroke Narrative: Robbin Peña is an 80yr old male with a medical history of paroxysmal atrial fibrillation, essential hypertension, hyperlipidemia, BPH, TAD with CPAP, TIA, and stroke in 2007 and vascular dementia patient was brought in to the ED via EMS as a code stroke. The patient reports that he was at home this evening watching TV at approximately 10:15 p.m. he would distended to go to bed became lightheaded and slumped to the floor did not hit his head or lose consciousness his was present and states the patient demonstrated slurred speech and left-sided weakness left arm and left leg. Initial NIH:7, the patient also presented in hypertensive emergency 228/111. Dr. Bradley consulted with Neurostroke who reviewed the case and recommended the patient be put on a nicardipine drip with a SBP goal of<200. Half an hour after starting drip the patient's symptoms resolved. Patient denies headache, changes in vision, d ifficulty swallowing, weakness, numbness, tingling, difficulties with speech, dizziness, chest pain, shortness of breath, diaphoresis, palpitations, abdominal pain, nausea, vomiting, chills, fever, body aches, recent illness, injury, or trauma. I conducted admit interview in the ED patient was symptom free, NIH:0 patient was able to completely recall the night's events, was alert and orientated x3. Patient's vitals upon admit temp 98.4?, B/P 221/110, HR 84, R 18, O2 saturation 95% on room air. Patient's CBC was within normal limits with the exception of platelets 123, CMP also within normal limits with the exception of glucose of 138, UA negative no culture indicated. Patient's head neck CTA demonstrated thrombus in the right proximal HAND BENDER just distal to the bifurcation. Dominant right vertebral artery with severe atherosclerotic calcifications and 90% stenosis in the intracranial portion, with severe atherosclerotic calcifications in both intracranial ICAs with approximately 70% stenosis bilaterally, and atherosclerotic disease of both carotid arteries with no significant stenosis.? Patient's brain CT demonstrated no acute intracranial abnormality, with a remote right frontoparietal infarct. Patient's EKG I personally reviewed normal sinus rhythm with a rate of 78, and a right bundle bunch block, inferior infarct of undetermined age. Patient is admitted for left neurological deficit, TIA versus stroke, with hypertensive emergency on a nicardipine drip to the ICU. Patient History Medical History Atrial fibrillation with controlled ventricular rate BPH (benign prostatic hyperplasia) Cataract (lens) fragments in eye following cataract surgery, bilateral Hyperlipidemia Hypertension lab[employer] associated with adverse incidents Obesity (BMI 30-39.9) Obstructive sleep apnea Vascular dementia Surgical History H/O hernia repair History of tonsillectomy Hx laparoscopic cholecystectomy Hx of transurethral resection of prostate Family & Social History Family History Mother Congestive heart failure Father Cancer Social History: household members spouse,children Safety & Behavioral: Feels Safe in Current Yes Environment Been Physically Hurt or No Threatened By a Person Tobacco & Substance use: Tobacco type cigarettes,pipe Smoking Status Former smoker alcohol intake current alcohol intake frequency a few times a week Substance Use Type does not use Meds Home Medications and Allergies Home Medications Medication Instructions Recorded Confirmed Type aspirin 81 mg tablet,delayed 81 mg PO DAILY 11/25/18 05/15/21 History release (Adult Low Dose Aspirin) lisinopril 20 mg tablet 20 mg PO DAILY 11/25/18 05/15/21 History simvastatin 20 mg tablet 20 mg PO DAILY 11/25/18 05/15/21 History metoprolol succinate 50 mg 50 mg PO DAILY 05/23/19 05/15/21 History tablet,extended release 24 hr memantine 10 mg tablet 10 mg PO BID 05/15/21 05/15/21 History Allergies Allergy/AdvReac Type Severity Reaction Status Date / Time No Known Drug Allergies Allergy Verified 05/07/21 10:39 Review of Systems Review of Systems Narrative: All 12 point systems reviewed with the patient and are negative except otherwise documented. Exam Vital Signs (past 8 hours): - 05/14/21 23:37 05/14/21 23:38 05/14/21 23:43 Temperature 98.4 F Pulse Rate 86 93 H 88 Respiratory Rate 22 Blood Pressure 245/120 H 245/120 H 245/120 H Pulse Oximetry 97 98 05/14/21 23:44 05/14/21 23:50 05/14/21 23:57 Temperature Pulse Rate 85 84 84 Respiratory Rate 22 19 Blood Pressure 244/117 H 224/109 H 224/109 H Pulse Oximetry 96 98 05/15/21 00:00 05/15/21 00:02 05/15/21 00:05 Temperature Pulse Rate 83 80 80 Respiratory Rate 14 15 20 Blood Pressure 228/111 H Pulse Oximetry 95 97 94 05/15/21 00:10 05/15/21 00:15 05/15/21 00:20 Temperature Pulse Rate 78 80 78 Respiratory Rate 19 19 21 Blood Pressure Pulse Oximetry 96 96 05/15/21 00:22 05/15/21 00:25 05/15/21 00:30 Temperature Pulse Rate 81 80 79 Respiratory Rate 24 16 15 Blood Pressure 221/110 H 215/104 H Pulse Oximetry 96 98 97 05/15/21 00:35 05/15/21 00:36 05/15/21 00:40 Temperature Pulse Rate 83 82 88 Respiratory Rate 16 15 21 Blood Pressure 190/85 H 182/86 H Pulse Oximetry 97 97 95 05/15/21 00:45 05/15/21 00:50 05/15/21 00:55 Temperature Pulse Rate 80 102 H 86 Respiratory Rate 21 24 20 Blood Pressure 182/88 H Pulse Oximetry 95 96 94 05/15/21 01:00 05/15/21 01:05 05/15/21 01:07 Temperature Pulse Rate 85 84 84 Respiratory Rate 23 18 Blood Pressure 164/75 H 167/80 H 221/110 H Pulse Oximetry 96 95 Oxygen Delivery Method Room Air Narrative Exam Narrative: General: Patient is a well-developed, well-nourished elderly gentlemen, resting comfortably in ED, in no distress at this time. HEENT: Normocephalic, atraumatic, extraocular muscles intact, oral pharynx is clear and mucous membranes are moist. Neck is supple and symmetric, trachea is midline, no adenopathy, no thyroid enlargement, nontender, no masses palpated. Negative for JVD Chest: Normal AP diameter and contour without kyphoscoliosis, no nasal flaring, retractions, or tachypneic labored Lungs: Auscultation of all lung nieto are clear without adventitious sounds, wheezes, rhonchi, or rales. Cardio: S1 & S2 with regular rate and rhythm without murmur, rubs, or gallops, no carotid bruit, no cardiac pulsations present. Abdomen: Soft nontender, negative for organomegaly, or masses. Bowel sounds are present in all 4 quadrants without guarding or rebound, no CVA tenderness. Musculoskeletal: Muscle strength and tone are equal within normal limits, no deformity, crepitus, effusions, cyanosis, clubbing or edema present. Full range of motion intact radial and pedal pulses are normal. Skin: Warm dry and intact without rashes, ulcerations or petechiae. Neuro: Alert and orientated x3, strength is +5/5 in all extremities, sensation to touch intact, no gross deficits noted of cranial nerves. Psych: Patient has a well-kept appearance, appropriate affect, mental status attitude thought context and judgment are appropriate for age. Objective Labs Result Diagrams: 05/14/21 23:30 05/14/21 23:30 Labs: Laboratory Results - last 24 hr 05/14/21 05/14/21 05/14/21 23:30 23:30 23:30 WBC 6.1 RBC 4.12 L Hgb 13.5 Hct 39.0 L MCV 94.7 MCH 32.8 MCHC 34.6 RDW 12.9 Plt Count 123 L Neut % (Auto) 73.9 Lymph % (Auto) 13.1 L [place]uyler % (Auto) 9.9 Eos % (Auto) 2.3 Baso % (Auto) 0.8 Neut # (Auto) 4500 Lymph # (Auto) 800 L [place] # (Auto) 600 Eos # (Auto) 100 Baso # (Auto) 100 PT 11.7 INR 1.1 APTT 36 Sodium 136 L Potassium 3.4 Chloride 103 Carbon Dioxide 29 BUN 21 H Creatinine 0.74 Estimated GFR > 60.0 BUN/Creatinine Ratio 28.4 H Glucose 138 H Calcium 9.1 Magnesium 1.9 Total Bilirubin 0.5 AST 37 ALT 30 Alkaline Phosphatase 92 Total Creatine Kinase 98 CK-MB (CK-2) TNP CK-MB (CK-2) Rel Index TNP Troponin I < 0.012 Total Protein 6.8 Albumin 3.9 Globulin 2.9 Albumin/Globulin Ratio 1.3 Lipase 87 Urine Color Urine Appearance Urine pH Ur Specific [place] Urine Protein Urine Glucose (UA) Urine Ketones Urine Occult Blood Urine Nitrate Urine Bilirubin Urine Urobilinogen Ur Leukocyte Esterase Urine RBC Urine WBC Urine Bacteria Ur Culture Indicated? Ethyl Alcohol < 10 SARS-CoV-2 (PCR) 05/14/21 05/14/21 23:47 23:47 WBC RBC Hgb Hct MCV MCH MCHC RDW Plt Count Neut % (Auto) Lymph % (Auto) [place] % (Auto) Eos % (Auto) Baso % (Auto) Neut # (Auto) Lymph # (Auto) [place] # (Auto) Eos # (Auto) Baso # (Auto) PT INR APTT Sodium Potassium Chloride Carbon Dioxide BUN Creatinine Estimated GFR BUN/Creatinine Ratio Glucose Calcium Magnesium Total Bilirubin AST ALT Alkaline Phosphatase Total Creatine Kinase CK-MB (CK-2) CK-MB (CK-2) Rel Index Troponin I Total Protein Albumin Globulin Albumin/Globulin Ratio Lipase Urine Color Yellow Urine Appearance Clear Urine pH 7.5 Ur Specific [place] 1.020 Urine Protein 2+ H Urine Glucose (UA) Negative Urine Ketones Negative Urine Occult Blood Trace-lysed Urine Nitrate Negative Urine Bilirubin Negative Urine Urobilinogen 0.2 Ur Leukocyte Esterase Negative Urine RBC None seen Urine WBC None seen Urine Bacteria None seen Ur Culture Indicated? Cult not indicated Ethyl Alcohol SARS-CoV-2 (PCR) Negative Assessment & Plan Assessment & Plan narrative: Robbin Peña is an 80yr old male with a medical history of paroxysmal atrial fibrillation, essential hypertension, hyperlipidemia, BPH, TAD with CPAP, TIA, and stroke in 2007 and vascular dementia patient presented tonight with slurred speech and left-sided weakness left arm and left leg, Initial NIH:7, and a hypertensive emergency 228/111. Neurostroke consult advise Dr. Bradley that the patient was not a candidate for advanced intervention as they do not go after posterior thrombosis, as the tissue dies to quickly, and that the patients s/s had resolved 30min after starting the nicardipine drip. Patient admitted for stroke rule out, management of hypertensive emergency, and risk stratification. 1. Neurological deficit (slurred speech, left-sided arm and leg weakness), transient, acute, present on admission -patient was asymptomatic of all signs and symptoms within 30 minutes on the nicardipine drip -History of stroke 2007 -the neuro stroke consult also advised that the patient was not a candidate for TPN, and not to initiate Plavix, only ASA due to the patient's age & fall risk and injury. -Admit to ICU -Nicardipine drip Goal SBP <200 -MR, echo ordered for tomorrow -tele pharmaceutical specialty representative consult -ASA, Lipitor 80 mg ordered -Bedside swallow -A1c, TSH, lipids ordered -outpatient referral for Neurology on discharge. 2. Hypertensive emergency, in the setting of essential hypertension, acute on chronic, present on admission -B/P 228/111, 221/110 -will continue patient's lisinopril once off the drip. 3. Proximal atrial fibrillation, chronic, present on admission -continue patient's metoprolol once nicardipine drip 4. Hyperlipidemia, chronic, present on admission -holding patient's simvastatin replacing with 80 mg of Lipitor while inpatient. 5. Vascular dementia, chronic, present on admission -continue memantine Code status: DNR/DNI Surrogate decision maker: Dee Peña COVID PCR: Negative COVID vaccination: Unknown DVT/VTE prophylaxis:Lovenox 40mg & SCD's Disposition: Patient admitted to the ICU expected length stay less than 2 midnights. I have utilized all available immediate resources to obtain, update, or review the patient's current medications. I confirmed that the patient's advanced care plan is present, Code status is documented and/or surrogate decision maker is listed in the patient's medical record. Time Spent With Patient Critical Care time: I spent a total of [] minutes of critical care time on this patient's care today; this time is exclusive of procedural time.
[2021-05-15 02:53] LABS: NT-proBNP (BNP-Adult 18+) 189 pg/mL (<450)
[2021-05-15 05:33] LABS: Hemoglobin A1C% w Est Avg Glu 5.1 % (4.0-6.0)
[2021-05-15 05:33] LABS: BUN Creatinine Ratio 22.2 (6-22); Blood Urea Nitrogen 16 mg/dL (9-20); Calcium 8.9 mg/dL (8.4-10.2); Carbon Dioxide 30 mmol/L (22-32); Chloride 103 mmol/L (98-107); Cholesterol 128 mg/dL (140-199); Estimated Glomerular Filt Rate > 60.0 mL/min (>60); Glucose 161 mg/dL (80-110); HDL Cholesterol 53 mg/dL (40-60); HEMOLYSIS < 15 (0-50); LDL Cholesterol Calculated 69 mg/dL (<100); Magnesium 1.8 mg/dL (1.6-2.3); Potassium 3.7 mmol/L (3.4-5.1); Sodium 137 mmol/L (137-145); Triglycerides 29 mg/dL (35-150)
[2021-05-15 05:44] LABS: Troponin I 0.017 ng/mL (0.01-0.034)
[2021-05-15] MEDS: ENOXAPARIN 40 MG/0.4 ML SYRINGE SUBCUT (09:03)
[2021-05-15] MEDS: lisinopriL 20 MG TABLET PO ×2 (09:04→13:32)
[2021-05-15] MEDS: ASPIRIN EC 81 MG TABLET PO (09:04)
[2021-05-15] MEDS: MEMANTINE HCL 5 MG TABLET 10 MG PO ×2 (09:04→20:56)
[2021-05-15] MEDS: METOPROLOL ER 50 MG TABLET PO (09:04)
[2021-05-15] MEDS: SODIUM CHLORIDE 0.9% 1,000 ML 125 ML IV (09:05)
--- NOTE | 2021-05-15 09:47 | P.TELICUCN_ITS ---
History of Present Illness Consult details Chief complaint: Code stroke :: This patient was seen via real time interactive two-way audiovisual telecommunication. 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 Obesity (BMI 30-39.9) Obstructive sleep apnea Vascular dementia Surgical History H/O hernia repair History of tonsillectomy Hx laparoscopic cholecystectomy Hx of transurethral resection of prostate Family History Mother Congestive heart failure Father Cancer Social History marital status: household members: spouse and children Smoking Status: Former smoker alcohol intake: current Current Medications Current Medications Medications: Home Medications aspirin 81 mg tablet,delayed release (Adult Low Dose Aspirin) 81 mg PO DAILY 11/25/18 [History Confirmed 05/15/21] lisinopril 20 mg tablet 20 mg PO DAILY 11/25/18 [History Confirmed 05/15/21] simvastatin 20 mg tablet 20 mg PO DAILY 11/25/18 [History Confirmed 05/15/21] metoprolol succinate 50 mg tablet,extended release 24 hr 50 mg PO DAILY 05/23/19 [History Confirmed 05/15/21] memantine 10 mg tablet 10 mg PO BID 05/15/21 [History Confirmed 05/15/21] Visit Medications (administered) Generic Name Dose Route Start Last Admin Trade Name Freq PRN Reason Stop Dose Admin Aspirin 81 mg 05/15/21 09:00 05/15/21 09:04 Aspirin Ec 81 Mg Tablet PO 81 mg DAILY ROSIE Administration Enoxaparin Sodium 40 mg 05/15/21 09:00 05/15/21 09:03 Enoxaparin 40 Mg/0.4 Ml Syringe SUBCUT 40 mg DAILY ROSIE Administration Sodium Chloride 1,000 mls @ 125 mls/hr 05/14/21 23:30 05/15/21 09:05 Normal Saline 0.9% IV 125 mls/hr CONT ROSIE Administration Nicardipine HCl 25 mg/ Sodium 250 mls @ 50 mls/hr 05/15/21 00:00 05/15/21 02:25 Chloride IV 0 mg/hr TITRATE ROSIE 0 mls/hr Titration Protocol 5 MG/HR Lisinopril 20 mg 05/15/21 09:00 05/15/21 09:04 Lisinopril 20 Mg Tablet PO 20 mg DAILY ROSIE Administration Memantine 10 mg 05/15/21 09:00 05/15/21 09:04 Memantine Hcl 5 Mg Tablet PO 10 mg BID ROSIE Administration Metoprolol Succinate 50 mg 05/15/21 09:00 05/15/21 09:04 Metoprolol Er 50 Mg Tablet PO 50 mg DAILY ROSIE Administration Exam Vital Signs (past 8 hours): - 05/15/21 01:50 05/15/21 01:55 05/15/21 02:00 Temperature Pulse Rate 85 82 85 Respiratory Rate 18 16 21 Blood Pressure 176/84 H Pulse Oximetry 98 95 97 05/15/21 02:05 05/15/21 02:10 05/15/21 02:15 Temperature Pulse Rate 87 82 82 Respiratory Rate 18 17 17 Blood Pressure 172/81 H Pulse Oximetry 97 95 95 05/15/21 02:20 05/15/21 02:25 05/15/21 02:30 Temperature Pulse Rate 82 94 H 80 Respiratory Rate 16 35 H 18 Blood Pressure 185/89 H Pulse Oximetry 95 97 93 05/15/21 02:35 05/15/21 02:40 05/15/21 02:45 Temperature Pulse Rate 84 79 92 H Respiratory Rate 22 19 21 Blood Pressure Pulse Oximetry 97 94 95 05/15/21 02:47 05/15/21 02:50 05/15/21 02:55 Temperature Pulse Rate 81 77 77 Respiratory Rate 15 16 18 Blood Pressure 186/89 H Pulse Oximetry 94 94 94 05/15/21 03:00 05/15/21 03:05 05/15/21 03:10 Temperature Pulse Rate 73 78 81 Respiratory Rate 17 17 18 Blood Pressure 185/84 H Pulse Oximetry 94 94 96 05/15/21 03:15 05/15/21 03:20 05/15/21 03:49 Temperature 97.5 F L Pulse Rate 75 75 81 Respiratory Rate 17 18 15 Blood Pressure 183/89 H 196/94 H Pulse Oximetry 95 94 95 05/15/21 04:08 05/15/21 08:05 Temperature 98.6 F Pulse Rate 61 Respiratory Rate 15 Blood Pressure 168/78 H Pulse Oximetry 96 97 Oxygen Delivery Method Room Air Oxygen Flow Rate 0 Objective Labs Result Diagrams: 05/14/21 23:30 05/15/21 04:58 Labs: Laboratory Results - last 24 hr 05/14/21 05/14/21 05/14/21 23:30 23:30 23:30 WBC 6.1 RBC 4.12 L Hgb 13.5 Hct 39.0 L MCV 94.7 MCH 32.8 MCHC 34.6 RDW 12.9 Plt Count 123 L Neut % (Auto) 73.9 Lymph % (Auto) 13.1 L [place] % (Auto) 9.9 Eos % (Auto) 2.3 Baso % (Auto) 0.8 Neut # (Auto) 4500 Lymph # (Auto) 800 L [place] # (Auto) 600 Eos # (Auto) 100 Baso # (Auto) 100 PT 11.7 INR 1.1 APTT 36 Sodium 136 L Potassium 3.4 Chloride 103 Carbon Dioxide 29 BUN 21 H Creatinine 0.74 Estimated GFR > 60.0 BUN/Creatinine Ratio 28.4 H Glucose 138 H Hemoglobin A1c Calcium 9.1 Magnesium 1.9 Total Bilirubin 0.5 AST 37 ALT 30 Alkaline Phosphatase 92 Total Creatine Kinase 98 CK-MB (CK-2) TNP CK-MB (CK-2) Rel Index TNP Troponin I < 0.012 NT-Pro-B Natriuret Pep Total Protein 6.8 Albumin 3.9 Globulin 2.9 Albumin/Globulin Ratio 1.3 Triglycerides Cholesterol LDL Cholesterol, Calc HDL Cholesterol Lipase 87 TSH Urine Color Urine Appearance Urine pH Ur Specific [place] Urine Protein Urine Glucose (UA) Urine Ketones Urine Occult Blood Urine Nitrate Urine Bilirubin Urine Urobilinogen Ur Leukocyte Esterase Urine RBC Urine WBC Urine Bacteria Ur Culture Indicated? Ethyl Alcohol < 10 SARS-CoV-2 (PCR) 05/14/21 05/14/21 05/14/21 23:30 23:30 23:30 WBC RBC Hgb Hct MCV MCH MCHC RDW Plt Count Neut % (Auto) Lymph % (Auto) [place] % (Auto) Eos % (Auto) Baso % (Auto) Neut # (Auto) Lymph # (Auto) [place] # (Auto) Eos # (Auto) Baso # (Auto) PT INR APTT Sodium Potassium Chloride Carbon Dioxide BUN Creatinine Estimated GFR BUN/Creatinine Ratio Glucose Hemoglobin A1c 5.1 Calcium Magnesium Total Bilirubin AST ALT Alkaline Phosphatase Total Creatine Kinase CK-MB (CK-2) CK-MB (CK-2) Rel Index Troponin I NT-Pro-B Natriuret Pep 189 Total Protein Albumin Globulin Albumin/Globulin Ratio Triglycerides Cholesterol LDL Cholesterol, Calc HDL Cholesterol Lipase TSH 4.30 Urine Color Urine Appearance Urine pH Ur Specific [place] Urine Protein Urine Glucose (UA) Urine Ketones Urine Occult Blood Urine Nitrate Urine Bilirubin Urine Urobilinogen Ur Leukocyte Esterase Urine RBC Urine WBC Urine Bacteria Ur Culture Indicated? Ethyl Alcohol SARS-CoV-2 (PCR) 05/14/21 05/14/21 05/15/21 23:47 23:47 04:58 WBC RBC Hgb Hct MCV MCH MCHC RDW Plt Count Neut % (Auto) Lymph % (Auto) [place] % (Auto) Eos % (Auto) Baso % (Auto) Neut # (Auto) Lymph # (Auto) [place] # (Auto) Eos # (Auto) Baso # (Auto) PT INR APTT Sodium 137 Potassium 3.7 Chloride 103 Carbon Dioxide 30 BUN 16 Creatinine 0.72 Estimated GFR > 60.0 BUN/Creatinine Ratio 22.2 H Glucose 161 H Hemoglobin A1c Calcium 8.9 Magnesium 1.8 Total Bilirubin AST ALT Alkaline Phosphatase Total Creatine Kinase CK-MB (CK-2) CK-MB (CK-2) Rel Index Troponin I 0.017 NT-Pro-B Natriuret Pep Total Protein Albumin Globulin Albumin/Globulin Ratio Triglycerides 29 L Cholesterol 128 L LDL Cholesterol, Calc 69 HDL Cholesterol 53 Lipase TSH Urine Color Yellow Urine Appearance Clear Urine pH 7.5 Ur Specific [place] 1.020 Urine Protein 2+ H Urine Glucose (UA) Negative Urine Ketones Negative Urine Occult Blood Trace-lysed Urine Nitrate Negative Urine Bilirubin Negative Urine Urobilinogen 0.2 Ur Leukocyte Esterase Negative Urine RBC None seen Urine WBC None seen Urine Bacteria None seen Ur Culture Indicated? Cult not indicated Ethyl Alcohol SARS-CoV-2 (PCR) Negative Assessment & Plan Assessment & Plan narrative: patietn seen with bedside nurse and provider chart/labs/imaging reviewed 80 year old male with PMHx of afib, HTN, BPH, TAD, TIA/ Stroke admitted with left side weakness with sbpt to 220s hypertensive emergency AMS plan -pt protecting airway -wean off cardene drip (already off) -keep sbp less than 200 -start home meds, can add bb -check echo -serial ekg/trop -check tsh/lipi/ai1c -keep glucose 140-180s -gi/dvt ppx -dysphagia -pt/ot -call eICU if condition changes Time Spent With Patient Critical Care time: I spent a total of [] minutes of critical care time on this patient's care today; this time is exclusive of procedural time.
--- NOTE | 2021-05-15 10:05 | PT.IIE ---
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 Obesity (BMI 30-39.9) Obstructive sleep apnea Vascular dementia Physical Therapy Inpatient Evaluation/Re-Eval M1 PT/OT-IP Prior Functional Status Start: 05/15/21 12:34 Freq: NEEDED Status: Active Protocol: Document 05/15/21 10:05 AB (Rec: 05/15/21 12:47 AB [email or web address]) Medical Review Prior Functional Status Medical History Reviewed Yes Communication able to make needs known but with increase time needed to respond to questions and has some word finding difficulty Mobility and Gait pt stated that he is modified independent with alll mobilities and ambulation without AD but occasionally uses a hiking pole for outdoor /uneven surfaces ambulation Social History Household Members spouse Living Arrangements House Number of Floors (Floors) One Floor Number of Stairs To Enter/Railing? 1 step to enter Home Environment High Toilet,Tub/Shower Home Equipment Front Wheel Walker,Grab Bars In Shower Additional Social History Comment pt has hiking poles M2 PT-IP Current Condition Start: 05/15/21 12:34 Freq: NEEDED Status: Active Protocol: Document 05/15/21 10:05 AB (Rec: 05/15/21 12:47 AB [email or web address]) Physical Therapy Current Condition Current Condition Evaluation Date 05/15/21 Treatment Diagnosis R CVA; difficulty in walking Onset Date 05/15/21 M3 PT-IP Subjective Start: 05/15/21 12:34 Freq: NEEDED Status: Active Protocol: Document 05/15/21 10:05 AB (Rec: 05/15/21 12:47 AB [email or web address]) Subjective Physical Therapy Visit Type Type Initial Evaluation Visit Start Time 10:05 Visit Stop Time 10:50 Total Visit Minutes 45 Number of CANDY MAKER Visits 0 Physical Therapy Visit Comments Patient Comments agreeable to do PT Therapy Pain Assessment Pain Present Pain Present Denied Pain M4 PT-IP Mobility and Gait Start: 05/15/21 12:34 Freq: NEEDED Status: Active Protocol: Document 05/15/21 10:05 AB (Rec: 05/15/21 12:47 AB [email or web address]) PT-Bed Mobility Assessment Supine to Sit Supine to Sit Standby Assistance PT-Transfer Assessment Sit to and From Stand Sit to and from Stand Moderate Assistance,1 Person Assistance,Use of Upper Extremities Equipment Transfer Assistive Device Gait Belt,Front Wheeled Walker Orthotic/Prosthetic Devices or Brace: No Transfers Transfer Destination Chair Transfer Technique ambulated Comments Mobility Comments pt completed supine to sit SBA . able to sit on EOB SBA. noted increase lateral trunk lean to the R. cued to correct and pt able to correct . completed sit to stand from EOB mod A and cues with initial L knee buckling. cued for quads activation. Pt's MMT grossly tested 4-/5. pt appears to have decrease motor planning/ activation on LLE affecting balance and mobility . pt ambulated in room using FWW mod A ~ 12 ft and max cues for quads activation for steadiness. pt also tends to run into things on R side require assist with FWW maneuvering. pt agreed to sit on the the chair. positioned . call light and table placed within reach. informed pt regarding acute rehab recommendation and pt agreed. Gait Assessment Gait Gait Assistance Required: Moderate Assistance,1 Person Assist Distance (Feet) 12 Able to Maintain Weight Bearing Status Yes During Gait Assistive Devices Assistive Device Gait Belt,Front Wheeled Walker Orthotic/Prosthetic Devices or Brace: No Gait Deviations General Gait Pattern Decreased Stride Length, Decreased Feet Clearance, Lateral Trunk Lean,Step-to Gait Factors Limiting Gait Function Factors Limiting Gait Function Decreased Activity Tolerance, Decreased Strength,Difficulty Following Directions,Poor Balance,Poor Safety Awareness PT-Balance Assessment Sitting Balance and Reactions Static Sitting Balance Ability Good Dynamic Sitting Balance Ability Fair Standing Balance and Reactions Static Standing Balance Ability Poor Dynamic Standing Balance Ability Poor Device Used FWW M5 PT-IP Objective Assessments Start: 05/15/21 12:34 Freq: NEEDED Status: Active Protocol: Document 05/15/21 10:05 AB (Rec: 05/15/21 12:47 AB [email or web address]) Orientation Orientation/Cognition Level of Alertness Alert Orientation Name Language Function Ability Word Finding Difficulties Safety Awareness Decreased Safety Awareness Memory Description No Deficits Noted Gross Range of Motion Lower Extremity ROM Assessment Within Functional Limits Strength Lower Extremity Strength Assessment Right Impaired Hip 4-/5 Knee 4-/5 Ankle 4-/5 Sensation Assessment Sensation Gross Sensation WNL Muscle Tone Muscle Tone WNL Yes M6 PT-IP Treatment Start: 05/15/21 12:34 Freq: NEEDED Status: Active Protocol: Document 05/15/21 10:05 AB (Rec: 05/15/21 12:47 AB [email or web address]) Physical Therapy Treatment Education Education Provided Safety M7 PT-IP Assessment and Plan Start: 05/15/21 12:34 Freq: NEEDED Status: Active Protocol: Document 05/15/21 10:05 AB (Rec: 05/15/21 12:47 AB [email or web address]) PT Summary Assessment and Plan Potential Rehabilitation Potential Good Status of Condition at Evaluation Evolving Summary Impairments Pain,ROM,Strength,Balance, Coordination,Sensation,Tone, Cognition,Bed Mobility, Transfers,Gait,Activity Tolerance Assessment Summary pt requiring mod A with transfers and ambulation using FWW. presents with L knee buckling and requires cues for muscle activation. Pt with RLE muscle strength of 4-/5 but needs cues for muscle activation/motor planning to prevent R knee buckling during standing/ambulation. Pt will require acute rehab to improve strength, standing balance and mobility independence. Goals Bed Mobility Goal Independent Transfer Goal Independent,Front Wheeled Walker Gait Goal Independent,Front Wheel Walker Gait Distance 100 Other Goals up/down 1 step using FWW CGA Days to Meet Goals 10 Frequency of Treatment Frequency Of Treatment Once a Day Treatment Plan Physical Therapy Treatment Plan Bed Mobility Training,Transfer Training,Gait Training, Therapeutic Exercise,Balance Retraining,Discharge Planning, Hot or Cold Pack,Neuromuscular Re-ed,Coordination Retraining ,Manual Therapy Precautions Other Precautions falls Recommendations To Nursing Amount of Assist Needed 1 Person Assist Discharge Recommendations PT Discharge Recommendations Acute Rehab Transportation Needs at Discharge Private Vehicle,Wheelchair/ Cabulance
--- NOTE | 2021-05-15 12:03 | OT.IP.EVAL ---
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 Obesity (BMI 30-39.9) Obstructive sleep apnea Vascular dementia Surgical History (Last Reviewed 05/15/21 @ 03:33 by MILAGROS Gray) H/O hernia repair History of tonsillectomy Hx laparoscopic cholecystectomy Hx of transurethral resection of prostate Occupational Therapy Inpatient Evaluation/Re-Eval M1 PT/OT-IP Prior Functional Status Start: 05/15/21 12:34 Freq: NEEDED Status: Active Protocol: Document 05/15/21 10:05 AB (Rec: 05/15/21 12:47 AB [id number]) Medical Review Prior Functional Status Medical History Reviewed Yes Communication able to make needs known but with increase time needed to respond to questions and has some word finding difficulty Mobility and Gait pt stated that he is modified independent with all mobilities and ambulation without AD but occasionally uses a hiking pole for outdoor /uneven surfaces ambulation Social History Household Members spouse Living Arrangements House Number of Floors (Floors) One Floor Number of Stairs To Enter/Railing? 1 step to enter Home Environment High Toilet,Tub/Shower Home Equipment Front Wheel Walker,Grab Bars In Shower Additional Social History Comment pt has hiking poles M2 OT-IP Current Condition Start: 05/15/21 12:09 Freq: Status: Active Protocol: Document 05/15/21 12:09 [facility]3] (Rec: 05/15/21 12:36 [facility]3] [id number]) Occupational Therapy Current Condition Current Condition Evaluation Date 05/15/21 Treatment Diagnosis CVA Diagnosis Onset Date 05/15/21 M3 OT- IP Subjective and Pain Start: 05/15/21 12:09 Freq: Status: Active Protocol: Document 05/15/21 12:09 [facility]3] (Rec: 05/15/21 12:36 [facility]3] [id number]) OT- Subjective Occupational Therapy Visit Type Type Initial Evaluation Visit Start Time 11:10 Visit Stop Time 12:03 Total Visit Minutes 53 Occupational Therapy Visit Comments Patient Comments Pt agreed to work with OT. Patient/Caregiver Goals Pt's and pt agreeable for pt to go to acute rehab. OT Pain Assessment Pain When Pain Assessed During Mobility Pain Present Pain Present Denied Pain M4 OT- IP ADL's Start: 05/15/21 12:09 Freq: Status: Active Protocol: Document 05/15/21 12:09 [facility]3] (Rec: 05/15/21 12:36 [facility]3] [id number]) OT [id number]-Hubszwq Comments OT Self-Feeding Comments Able to touch base with pt while eating lunch and noted left neglect and needing cues to use his left hand. Cues to slow his rate and make sure to chew his food thoroughly. Pt states has 5 teeth missing and also that his states that he eats very fast usually at home. OT ADL-Grooming Comments OT Grooming Comments Not performed. OT ADL-Oral Care Comments Oral Care Comments Not performed. OT ADL-Dressing General Eval Lower Body Dressing Ability Moderate Assistance Comments OT Dressing Comments Pt not able to fully use his left hand to assist to taj/ doff his socks and having difficulty to grasp the sock in his left hand and mainly just using his right hand to assist. OT ADL-Toileting Comments OT Toileting Comments Pt not having to go. OT ADL-Bathing Comments OT Bathing Comments At this time pt would benefit from a tub bench at home to assist to help get into and out of the tub/shower as pt is a fall risk. M5 OT- IP IADL's Start: 05/15/21 12:09 Freq: Status: Active Protocol: Document 05/15/21 12:09 [facility]3] (Rec: 05/15/21 12:36 [facility]3] [id number]) OT-Instrumental Activities of Daily Living Home Safety Awareness Awareness of Need for Assistance at Home Good Awareness Ability to Problem Solve Emergency Able to Problem Solve Situations Home Safety Comments Pt needing increased time to process and get his words out. Pt eventually able to answer questions correctly. Medication Management Medication Management Comments At this time due to his decreased STM, would be best for his to assist for his IADL needs. Money Management Money Management Comments Due to cognitive deficits would be best for his to assist at this time. Driving Driving Concerns Identified Regarding Safety M6 OT- IP Functional Cognition Start: 05/15/21 12:09 Freq: Status: Active Protocol: Document 05/15/21 12:09 [facility]3] (Rec: 05/15/21 12:36 [facility]3] [id number]) Cognitive Factors Limiting Selfcare Function Cognitive Ability Level of Alertness Alert,Confusional State Patient Orientation Name,Month,Place,Situation Attention Span Ability Capable of Focused Attention, Unable to Sustain Attention Ability to Follow Commands Able to Follow One Step Commands with Increased Time, Able to Follow One Step Commands with Repetition Memory Description Short Term Impaired,Working Impaired Safety Awareness Underestimates Need for Assistance Problem Solving Ability Unable to Identify Errors, Needs Assist to Identify Solutions Executive Function Ability Unable to Switch Focus,Unable to Organize Plans,Unable to Remember Details Cognitive Tests SLUMS Pt scored 16/30 which implies dementia/cognitive deficits. Pt had a CVA in 2007 but pt states had no deficits and was able to recover. Pt's states for the past two week has noted a decline in his memory, processing , and initiation. Pt able to state the State we live in, able to identify 7 animals in one minute, able to say 3 digit backwards, able to draw the number on the clock correctly and the hour hands after time given, and able to answer 3/4 questions right after paragraph read. Cognitive Comments Cognitive Assessment Comments Pt scored 420 seconds on Dumas Making Part B which implies severe impairments for visual attention, task switching, speed of processing, mental flexibility, and executive functioning. Pt states having trouble thinking and getting the words out. Pt in full agreement that he will not be driving. OT- Vision and Hearing OT- Hearing Assessment OT- Hearing Assessment WFL OT- Vision Assessment Visual Acuity Glasses For Reading Visual Attentiveness Impaired Occular Pursuits WFL Visual Convergence WFL Visual Bailey WFL Diplopia Absent Visual Spacial Neglect Right Vision Assessment Comments Pt having more difficulty with right lower field quadrant. M7 OT- IP Mobility and Balance Start: 05/15/21 12:09 Freq: Status: Active Protocol: Document 05/15/21 12:09 [facility]3] (Rec: 05/15/21 12:36 [facility]3] [id number]) OT-Transfer Assessment Sit to and From Stand Sit to and from Stand Minimal Assistance Transfers Transfer Ability Moderate Assistance Technique Transfer Destination Bed,Chair Devices Transfer Assistive Devices Gait Belt,Front Wheeled Walker Comments Mobility Comments LORENA to stand form the FWW and MODA x1 with FWW to asisst to guide the FWW and for balance . Pt able to get back to supine on his own without assist. OT- Balance Assessment Sitting Balance and Reactions Static Sitting Balance Ability Good Dynamic Sitting Balance Ability Fair Standing Balance and Reactions Static Standing Balance Ability Fair M8 OT- IP Objective Assessments Start: 05/15/21 12:09 Freq: Status: Active Protocol: Document 05/15/21 12:09 [facility]3] (Rec: 05/15/21 12:36 [facility]3] [id number]) OT Gross Range of Motion Upper Extremity Range of Motion Assessment Within Functional Limits OT Strength Comments Strength Comments RUE 5/5 , LUE 5/5 to 4+/5 form proximal to distal OT- Coordination Assessment Comments Coordination Comments left hand initially slightly off and then no issues for finger to nose. Pt not able to hold utensil properly with left hand and then to neglect use of left hand at this time. OT-Muscle Tone Assessment Muscle Tone WNL Yes OT Sensation Assessment Comments Summary Comments Decreased proprioceptiona and kinesthesia with left wrist / fingers. Edema Edema Comments Mild swelling left hand M9 OT- IP Assessment and Plan Start: 05/15/21 12:09 Freq: Status: Active Protocol: Document 05/15/21 12:09 [facility]3] (Rec: 05/15/21 12:36 [facility]3] [id number]) OT Summary Assessment and Plan Potential Rehabilitation Potential Good Analytic Complexity at Evaluation Moderate Summary OT Impairments Balance,Coordination, Functional Cognition, Functional Mobility,Self- Feeding,Grooming,Dressing, Toileting,Bathing,Toilet Transfers,Shower Transfers, Activity Tolerance Progress Towards Goals Slow Progress due to Medical Issues,Slow Progress due to Activity Tolerance,Slow Progress due to Cognition Assessment Summary Pt high complexity and main barriers are steps, decreased functional use of left UE/ especially with coordination and smoothness of movement, decreased initiation, problem solving, short term memory, and decreased balance. Pt is far from his baseline as prior was independent with all needs. Pt's uses a cane herself and is not able to physically assist pt. Pt is very motivated, cooperative and pleasant and would be a good candidate for acute rehab . Goals Self-Feeding Goal Independent Grooming Goal Independent Dressing Goal Independent Toileting Goal Independent Bathing Goal Independent Toilet Transfer Goal Independent Shower Transfer Goal Independent OT-Other Goals Goals based on incorporation of left hand. Days to Meet Goals 30 Frequency of Treatment Frequency Of Treatment Once a Day Treatment Plan OT Treatment Plan ADL Training,Functional Cognition Training,Functional Mobility,Neuromuscular Re- education,Patient/Family Education,Discharge Planning Other Treatment Recommendations and Next Stand at sink for grooming Treatment Focus needs. Discharge Recommendations OT Discharge Recommendations Acute Rehab Transportation Needs at Discharge Private Vehicle
--- NOTE | 2021-05-15 13:16 | CM.DPNOTE ---
Faxed referral packet per Julia to [facility] and received fax conf. Vianey Styles CM Assist.
--- NOTE | 2021-05-15 15:18 | PC.NURSE ---
Notified Dr. Smith of BP 198/91. Pt denies s/s of HTN. Received orders for additional lisinopril. BP rechecked and noted to be 174/78. Discussed with Dr. Smith. No new orders at this time.
--- NOTE | 2021-05-15 17:02 | ST.IPIE ---
Visit Care Team Role Provider Type Stephen Mora MD Primary Care Provider Non-Staff Specialty: Medical Address: [address] [place] [address], [id number] Email: Lalo Moreira MD Other Providers Physician Specialty: Medical Address: Phone: Fax: Email: Terri Roque MD Other Providers Physician Specialty: Medical Address: Phone: Fax: Email: Danni Rice MD Other Providers Physician Specialty: Medical Address: Phone: Fax: Email: Santiago Rudd MD Other Providers Physician Specialty: Medical Address: Phone: Fax: Email: Maggy Benton MD Other Providers Physician Specialty: Internal Medicine Address: Phone: Fax: Email: Won Quinones MD Other Providers Physician Specialty: Medical Address: Phone: Fax: Email: Dayne Arcos MD Other Providers Physician Specialty: Internal Medicine Address: Phone: Fax: Email: Chai Lehman MD Other Providers Physician Specialty: Medical Address: Phone: Fax: Email: Ross Rice MD Other Providers Physician Specialty: Medical Address: Phone: Fax: Email: Mone St MD Other Providers Physician Specialty: Medical Address: Phone: Fax: Email: Christi Koehler Other Providers Physician Specialty: Medical Address: Phone: Fax: Email: Jae Grissom MD Other Providers Physician Specialty: Medical Address: Phone: Fax: Email: Won Bradley DO Emergency Provider Physician Referring Provider Specialty: Emergency Medicine Address: [address] [place] [address], [id number] Email: [email or web address] MILAGROS Gray Admit Provider Physician Attending Provider Specialty: Hospitalist Internal Medicine Address: [address] [place] [address], [id number] Email: Current Diagnoses Cerebral infarction, unspecified (05/15/21) Past Medical History (Last Reviewed 05/15/21 @ 03:33 by MILAGROS Gray) Atrial fibrillation with controlled ventricular rate (Medical) BPH (benign prostatic hyperplasia) (Medical) Cataract (lens) fragments in eye following cataract surgery, bilateral (Medical) H/O hernia repair (Medical) History of tonsillectomy (Medical) Hx laparoscopic cholecystectomy (Medical) Hx of transurethral resection of prostate (Medical) Hyperlipidemia (Medical) Hypertension (Medical) 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) Obesity (BMI 30-39.9) (Medical) Obstructive sleep apnea (Medical) Vascular dementia (Medical) ST IP Initial Evaluation Report MINUTE CLERK Adult Cognitive Linguistic Eval Start: 05/15/21 16:07 Freq: Status: Active Protocol: Document 05/15/21 16:23 LNK (Rec: 05/15/21 17:00 LNK [id number]) Adult Cognitive Linguistic Evaluation Session Time Visit Start Time 12:40 Visit Stop Time 13:15 Total Visit Minutes 35 Referral Reason for Referral CVA Setting Assessment Location Acute Care Visit Type Note Type Initial evaluation Next Note Type Next Note Type Re-Evaluation Patient Information Identification Type Name,Date of Medical History Robbin Peña is an 80yr old male with a medical history of paroxysmal atrial fibrillation , essential hypertension, hyperlipidemia, BPH, TAD with CPAP, TIA, and stroke in 2007 and vascular dementia patient presented tonight with slurred speech and left-sided weakness left arm and left leg , Initial NIH:7, and a hypertensive emergency 228/111 . Neurostroke consult advise Dr. Bradley that the patient was not a candidate for advanced intervention as they do not go after posterior thrombosis, as the tissue dies to quickly, and that the patients s/s had resolved 30min after starting the nicardipine drip. Patient admitted for stroke rule out, management of hypertensive emergency, and risk stratification. Education Level college Occupation Status retired Vision Comments needs glasses to read Subjective Patient Report Pt was in his bed with his in the room. Pt described the events from last night similarly to those described above. Pt reported he currently is having difficulty with word finding. His noted that he is having difficulty understanding some things such as the clues for crossword puzzles. She said that he seems to not understand the information in the clue. Assessment Oral Motor Examination Completed Yes Results Pt was observed to speak with clear articulation and voicing . OME was noted to be WFL. No slurring or s/sz dysarthria observed. Informal Assessment Receptive Language Normal See above for information provided by pt's Receptive Language Impairment(s) Comprehension of complex yes/ no questions,Following 3-step commands,Reading comprehension ,Reading Expressive Language Normal No Expressive Language Impairment(s) Confrontation naming,Divergent naming,Expression of complex thoughts/ideas Pragmatic Language Normal Yes Speech Normal Yes Findings/Results Language Function Mild-moderately impaired Findings Pt presented with receptive expressive aphasia characterized by diminished word finding, auditory processing of complex information, difficulty with recognizing written words and difficulty with reading sentences. Pt was able to complete 13/13 sentences and name 10/14 pictures of common items. He was able to write his name and address independently. Pt appeared to comprehend and respond appropriately during conversation. During conversation he demonstrated word finding difficulty~4-5x. He was able to use association n order to recover 2/4 words. Speech therapy is recommended . Pt would be an excellent acute rehab candidate. Cognitive Communication Deficits Self-awareness of Cognitive- Situational awareness ( Communication Deficits recognition of problem in context;in real time) Concomitant Factors Concomitant Factors Other (comment) Comment pt unable to read common words /phrases Prognosis Prognosis Good Based on Family support,Duration of symptoms/severity,Time since onset Plan of Care Speech-Language Treatment Yes Patient/Caregiver Education Described results of evaluation,Patient expressed understanding of evaluation, Patient expressed agreement with goals and treatment plans ,Family/caregivers expressed understanding of evaluation, Family/caregivers expressed agreement with goals and treatment plan,Patient requires further education/ training,Family/caregivers require further education/ training Short Term Goals Pt will recognize 10/10 words of common items. Pt will be able to divergently name 10 items from specified category. Pt and family will be provided with education of pt's condition and therapy goals. Discharge Recommendations Inpatient rehab facility
--- NOTE | 2021-05-15 17:45 | DIET.CONS ---
Dietary Consultation Note Admission Date: 05/15/2021 03:36 Assessment: 80 y/o M PMH afib, HTN, HLD, BPH, TAD c CPAP, TIA and stroke in [address] consult for weight loss. at bedside. Pt and endorse his intentional weight loss by reducing food portions. EMR weights do not indicate significant weight loss with only 5% loss per EMR over one year. Reports intentional weight loss from initial weight in the 270s#, possibly 1.5-2 years ago. Successful weight loss efforts, now 232#. Denies any concerns, questions, or appetite changes. Diet recall: B: yogurt or cereal or oatmeal L: PB and apple or PB sandwich D: spaghetti OR casserole Snacks: cookie or ice cream or pudding or fruit States they make an effort to eat fruit and vegetables and avoid salt. Ht: 182.88 cm Wt: 105.5 kg BMI: 31.5 Last BM: 05/14/21 (05/15/21 03:49) MNA: 10 Shayne Score: 18 Diet: 05/15/21 Breakfast Heart Healthy Diet Diet Modifications: Once swallow negative Nutrition Percent Meal Consumed 40 05/15/21 13:15 Percent Meal Consumed 0% 05/15/21 09:20 Labs: RBC 4.12 X10^6/uL (4.5-5.9) L 05/14/21 23:30 Hgb 13.5 g/dL (13.5-17.5) 05/14/21 23:30 Hct 39.0 % (41-53) L 05/14/21 23:30 Creatinine 0.72 mg/dL (0.66-1.25) 05/15/21 04:58 Hemoglobin A1c 5.1 % (4.0-6.0) 05/14/21 23:30 NT-Pro-B Natriuret Pep 189 pg/mL (<450) 05/14/21 23:30 Monitoring/Evaluations: consult prn Electronically Signed by: Li Duron 05/15/21 17:45 Clinical Dietitian [address] [address]
[2021-05-15] MEDS: ATORVASTATIN 20 MG TABLET 80 MG PO (20:56)
[2021-05-16] VITALS (12 sets, daily range): BP systolic 140–205; BP diastolic 65–93; PULSE 58–83; RESP 14–19; TEMP 36.8–37.1; O2SAT 95–100
[2021-05-16] MEDS: ASPIRIN EC 81 MG TABLET PO (08:22)
[2021-05-16] MEDS: lisinopriL 20 MG TABLET 40 MG PO (08:22)
[2021-05-16] MEDS: METOPROLOL ER 50 MG TABLET PO (08:22)
[2021-05-16] MEDS: MEMANTINE HCL 5 MG TABLET 10 MG PO ×2 (08:23→21:05)
[2021-05-16] MEDS: ENOXAPARIN 40 MG/0.4 ML SYRINGE SUBCUT (08:23)
--- NOTE | 2021-05-16 08:55 | PM.PN.1 ---
Subjective Subjective Date Patient Seen: 05/16/21 Time Patient Seen: 08:55 Interval history: 80 year old male admitted with leg weakness due to acute CVA. Still with difficulty ambulating. Feels well today, strength he feels is improving somewhat. No chest pain, nausea, vomiting or headache. BP remains high, added HCTZ this AM. Exam Vital Signs (past 8 hours): - 05/16/21 04:00 05/16/21 06:00 05/16/21 08:22 Temperature 98.4 F Pulse Rate 67 68 Respiratory Rate 17 Blood Pressure 140/65 175/81 H Pulse Oximetry 95 95 05/16/21 08:29 Temperature 98.3 F Pulse Rate 68 Respiratory Rate 14 Blood Pressure 175/81 H Pulse Oximetry 97 Oxygen Delivery Method Room Air Oxygen Flow Rate 0 Narrative Exam Narrative: General:? Patient is a well-developed, well-nourished elderly gentlemen, resting comfortably in ED, in no distress at this time. HEENT:? Normocephalic, atraumatic, extraocular muscles intact, oral pharynx is clear and mucous membranes are moist.? Neck is supple and symmetric, trachea is midline, no adenopathy, no thyroid enlargement, nontender, no masses palpated.? Negative for JVD Chest:? Normal AP diameter and contour without kyphoscoliosis, no nasal flaring, retractions, or tachypneic labored Lungs:? Auscultation of all lung nieto are clear without adventitious sounds, wheezes, rhonchi, or rales. Cardio:? S1 & S2 with regular rate and rhythm without murmur, rubs, or gallops, no carotid bruit, no cardiac pulsations present. Abdomen:? Soft nontender, negative for organomegaly, or masses.? Bowel sounds are present in all 4 quadrants without guarding or rebound, no CVA tenderness. Musculoskeletal:? Muscle strength and tone are equal within normal limits, no deformity, crepitus, effusions, cyanosis, clubbing or edema present.? Full range of motion intact radial and pedal pulses are normal. Skin:? Warm dry and intact without rashes, ulcerations or petechiae.? Neuro:? Alert and orientated x3, strength is +5/5 in all extremities, sensation to touch intact, no gross deficits noted of cranial nerves. Psych:? Patient has a well-kept appearance, appropriate affect, mental status attitude thought context and judgment are appropriate for age. 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 Obesity (BMI 30-39.9) Obstructive sleep apnea Vascular dementia Surgical History H/O hernia repair History of tonsillectomy Hx laparoscopic cholecystectomy Hx of transurethral resection of prostate Family History Mother Congestive heart failure Father Cancer Social History marital status: household members: spouse Smoking Status: Former smoker alcohol intake: current Assessment & Plan Assessment & Plan narrative: Robbin Peña is an 80yr old male with a medical history of paroxysmal atrial fibrillation, essential hypertension, hyperlipidemia, BPH, TAD with CPAP, TIA, and stroke in 2007 and vascular dementia patient presented tonight with slurred speech and left-sided weakness left arm and left leg,? Initial NIH:7, and a? hypertensive emergency 228/111. Improved symptoms with BP control, however also found to have thrombosis and multiple acute infarcts on imaging. 1. CVA, acute, present on admission. -patient was asymptomatic of all signs and symptoms within 30 minutes on the nicardipine drip -History of stroke 2007 -the neuro stroke consult also advised that the patient was not a candidate for TPA, and not to initiate Plavix, only ASA due to the patient's age & fall risk and injury. -Admit to ICU initially now regular floor. -MR shows multiple acute right sided infarcts and a L occipital lobe infarct. TTE unremarkable. -ASA, Lipitor 80 mg ordered -consider DOAC as an outpatient in the future, not currently recommended given bleeding risk and multitude of brain infarcts. 2. Hypertensive emergency, in the setting of essential hypertension, acute on chronic, present on admission -as noted above patient was on cardene gtt initially. - remains hypertensive despite 2 agents, will add HCTZ 25 mg daily. - monitor BMP on diuertic. 3. Proximal atrial fibrillation, chronic, present on admission -continue patient's metoprolol 4. Hyperlipidemia, chronic, present on admission -holding patient's simvastatin replacing with 80 mg of Lipitor while inpatient. 5. Vascular dementia, chronic, present on admission -continue memantine Code status: DNR/DNI Surrogate decision maker: Dee Peña COVID PCR: Negative DVT/VTE prophylaxis:Lovenox 40mg Dispo: Attempt acute rehab I have utilized all available immediate resources to obtain, update, or review the patient's current medications. I confirmed that the patient's advanced care plan is present, Code status is documented and/or surrogate decision maker is listed in the patient's medical record. COVID-19 COVID-19 status: Negative Time Spent With Patient Critical Care time: I spent a total of [] minutes of critical care time on this patient's care today; this time is exclusive of procedural time.
[2021-05-16] MEDS: hydroCHLOROthiazide 25 MG TABLET PO (10:08)
--- NOTE | 2021-05-16 10:08 | ST.IPTN ---
Visit Care Team Role Provider Type Stephen Mora MD Primary Care Provider Non-Staff Address: [address] [place] [address], [id number] Lalo Moreira MD Other Providers Physician Address: Phone: Fax: Terri Roque MD Other Providers Physician Address: Phone: Fax: Danni Rice MD Other Providers Physician Address: Phone: Fax: Santiago Rudd MD Other Providers Physician Address: Phone: Fax: Maggy Benton MD Other Providers Physician Address: Phone: Fax: Won Quinones MD Other Providers Physician Address: Phone: Fax: Dayne Arcos MD Other Providers Physician Address: Phone: Fax: Chai Lehman MD Other Providers Physician Address: Phone: Fax: Ross Rice MD Other Providers Physician Address: Phone: Fax: Mone St MD Other Providers Physician Address: Phone: Fax: Christi Koehler Other Providers Physician Address: Phone: Fax: Jae Grissom MD Other Providers Physician Address: Phone: Fax: Won Bradley DO Emergency Provider Physician Referring Provider Address: [address] [place] [address] Vidhi Webster [facility] Admit Provider Physician Attending Provider Address: [address] [place] [address], [facility] SKIDDER DRIVER Treatment Note SKIDDER DRIVER Treatment Note Start: 05/15/21 16:07 Freq: Status: Active Protocol: Document 05/16/21 09:58 MG (Rec: 05/16/21 10:08 MG [id number]) Speech Pathology Treatment Note Session Time Visit Start Time 09:30 Visit Stop Time 09:55 Total Visit Minutes 25 Visit Information Visit Number 2 Setting Treatment Setting Acute Care Visit Type Note Type Treatment Note Next Note Type Next Note Type Treatment Note General Information General Information Robbin Peña is an 80yr old male with a medical history of paroxysmal atrial fibrillation , essential hypertension, hyperlipidemia, BPH, TAD with CPAP, TIA, and stroke in 2007 and vascular dementia patient presented tonight with slurred speech and left-sided weakness left arm and left leg , Initial NIH:7, and a hypertensive emergency 228/111 . Neurostroke consult advise Dr. Bradley that the patient was not a candidate for advanced intervention as they do not go after posterior thrombosis, as the tissue dies to quickly, and that the patients s/s had resolved 30min after starting the nicardipine drip. Patient admitted for stroke rule out, management of hypertensive emergency, and risk stratification. Subjective Identification Type Name,ID Wristband Identification Reconciled With ID Bracelet Chief Complaint(s) Speech,Language,Cognitive Patient Knowledge/Awareness of SKIDDER DRIVER Role Good in Treatment Patient/Caregiver Compliance with Home Good Exercise Program Objective Short Term Goals Pt will recognize 10/10 words of common items. Pt will be able to divergently name 10 items from specified category. Pt and family will be provided with education of pt's condition and therapy goals. Treatment Activities Pt was resting in bed upon SKIDDER DRIVER entry and was agreeable to participate in treatment session. Pt participated in reading activity. Pt successfully read 5/7 words. Pt reported that reading lowercase is difficult and requested what letter he was looking at x4. When SKIDDER DRIVER wrote in all uppercase letters, he read quicker and needed less assistance. SKIDDER DRIVER and pt discussed word finding strategies and SKIDDER DRIVER went over strategies that could be helpful for the pt (e.g., describing word, taking is slow). Pt had no questions before SKIDDER DRIVER ended the session. Pt would be a good candidate for inpatient rehab facility upon discharge. Assessment Patient Response to Treatment Good Rehab Potential Good Impairments Identified Expressive Language,Memory - Short Term,Receptive Language, Other Progress Towards Goals Good Progress Assessment of Overall Progress Improving Assessment of Improvement Pt answered all questions from this SKIDDER DRIVER appropriately today. Pt was friendly and was successful at reading when strategies were in place (i.e. , writing in all uppercase for him to read). Reviewed with Patient Goals,Progress Being Made Patient/Caregiver Understanding Good Plan Therapeutic Contents Expressive Language Training, Receptive Language Training, Other Provided Patient/Caregiver Instruction Plan of Care,Questions/ Concerns Therapy Recommendations Continue with Current Program
--- NOTE | 2021-05-16 12:17 | OT.IP.TRT ---
Current Diagnoses Cerebral infarction, unspecified (05/15/21) Occupational Therapy Treatment Note M2 OT-IP Current Condition Start: 05/15/21 12:09 Freq: Status: Active Protocol: Document 05/15/21 12:09 [facility] (Rec: 05/15/21 12:36 [facility] [id number]) Occupational Therapy Current Condition Current Condition Evaluation Date 05/15/21 Treatment Diagnosis CVA Diagnosis Onset Date 05/15/21 M3 OT- IP Subjective and Pain Start: 05/15/21 12:09 Freq: Status: Active Protocol: Document 05/16/21 12:26 [facility] (Rec: 05/16/21 12:43 [facility] [id number]) OT- Subjective Occupational Therapy Visit Type Type Treatment Note Visit Start Time 11:00 Visit Stop Time 12:17 Total Visit Minutes 77 Occupational Therapy Visit Comments Patient Comments Pt agreed to shower. Pt's and son in the room. Patient/Caregiver Goals To go to skilled rehab. OT Pain Assessment Pain When Pain Assessed At Rest Pain Present Pain Present Denied Pain M4 OT- IP ADL's Start: 05/15/21 12:09 Freq: Status: Active Protocol: Document 05/16/21 12:26 [facility] (Rec: 05/16/21 12:43 [facility] [id number]) OT ADL-Dressing General Eval Lower Body Dressing Ability Minimal Assistance,Moderate Assistance Comments OT Dressing Comments Pt having difficulty to lift his left leg and use of left hand to help get his sock on. OT ADL-Toileting General Evaluation Toileting Ability Standby Assistance Comments OT Toileting Comments Pt able to stand with FWW to urinal, vc to find the lever of the toilet to flush OT ADL-Bathing Bathing Type Bathing Type Shower General Evaluation Bathing Ability Minimal Assistance,Moderate Assistance Areas Needing Assistance Retrieving/Setting Up Items, Wash/Dry Back Devices Bathing Equipment Hand Held Shower Sprayer, Shower Chair with Arms,Grab Bars Comments OT Bathing Comments Pt able to stand for most of the shower but needing CGA for balance or heavy use of the grab bars for his balance while standing and reaching to clean pericare needs. Pt needing cues throughout the task for safety. M5 OT- IP IADL's Start: 05/15/21 12:09 Freq: Status: Active Protocol: Document 05/15/21 12:09 [facility] (Rec: 05/15/21 12:36 [facility] [id number]) OT-Instrumental Activities of Daily Living Home Safety Awareness Awareness of Need for Assistance at Home Good Awareness Ability to Problem Solve Emergency Able to Problem Solve Situations Home Safety Comments Pt needing increased time to process and get his words out. Pt eventually able to answer questions correctly. Medication Management Medication Management Comments At this time due to his decreased STM, would be best for his to assist for his IADL needs. Money Management Money Management Comments Due to cognitive deficits would be best for his to assist at this time. Driving Driving Concerns Identified Regarding Safety M6 OT- IP Functional Cognition Start: 05/15/21 12:09 Freq: Status: Active Protocol: Document 05/16/21 12:26 [facility] (Rec: 05/16/21 12:43 [facility] [id number]) Cognitive Factors Limiting Selfcare Function Cognitive Ability Level of Alertness Alert,Confusional State Patient Orientation Name,Month,Place,Situation Ability to Follow Commands Able to Follow One Step Commands with Increased Time, Able to Follow One Step Commands with Repetition Memory Description Short Term Impaired,Working Impaired Safety Awareness Underestimates Need for Assistance Problem Solving Ability Unable to Identify Errors, Needs Assist to Identify Solutions Executive Function Ability Unable to Switch Focus,Unable to Organize Plans,Unable to Remember Details Cognitive Comments Cognitive Assessment Comments Pt scored 568 seconds for Paia Making Part B and having more difficulty to find the numbers and letters today. Pt states able to see everything find but at times has lose of association to be able to find the correct numbers/letter. Pt asked to find various items in the room and unable to see the glasses in front of him on the table or the FWW located on the right. Pt states saw the FWW but did not initially associate that it was a FWW. Pt needing safety cues for FWW use. M7 OT- IP Mobility and Balance Start: 05/15/21 12:09 Freq: Status: Active Protocol: Document 05/16/21 12:26 [facility] (Rec: 05/16/21 12:43 [facility] [id number]) OT-Transfer Assessment Sit to and From Stand Sit to and from Stand Minimal Assistance Transfers Transfer Ability Minimal Assistance,Moderate Assistance Technique Transfer Destination Bed,Chair,Shower Stall Devices Transfer Assistive Devices Gait Belt,Front Wheeled Walker Comments Mobility Comments LORENA to stand from lower surfaces and LORENA with FWW especially when walking over the threshold of the shower. Attempted to take a few steps without the FWW and pt very unsteady and needing MODA x1 to take a few steps on his own . OT- Balance Assessment Sitting Balance and Reactions Static Sitting Balance Ability Normal Dynamic Sitting Balance Ability Good Standing Balance and Reactions Static Standing Balance Ability Fair OT-Muscle Tone Assessment Muscle Tone WNL Yes OT Sensation Assessment Comments Summary Comments Decreased proprioception and kinesthesia with left wrist / fingers. Edema Edema Comments Mild swelling left hand M9 OT- IP Assessment and Plan Start: 05/15/21 12:09 Freq: Status: Active Protocol: Document 05/16/21 12:26 [facility] (Rec: 05/16/21 12:43 [facility] [id number]) OT Summary Assessment and Plan Potential Rehabilitation Potential Good Analytic Complexity at Evaluation High Summary OT Impairments Balance,Coordination, Functional Cognition, Functional Mobility,Self- Feeding,Grooming,Dressing, Toileting,Bathing,Toilet Transfers,Shower Transfers, Activity Tolerance Progress Towards Goals Slow Progress due to Medical Issues,Slow Progress due to Activity Tolerance,Slow Progress due to Cognition Assessment Summary Pt improvement with mobility needs, however still unsteady on his feet and needing LORENA with FWW. Prior pt does not use any device and able to walk his dog. Pt still having deficits with visual neglect to the right at times and at times not registering what is in front of him as having trouble to find his glasses on the table in front of him on top on a piece of paper. Pt needing increased time to problem solve with more variables and distractions. At this time would be best for pt to go to acute rehab. Goals Self-Feeding Goal Independent Grooming Goal Independent Dressing Goal Independent Toileting Goal Independent Bathing Goal Independent Toilet Transfer Goal Independent Shower Transfer Goal Independent OT-Other Goals Goals based on incorporation of left hand. Days to Meet Goals 29 Frequency of Treatment Frequency Of Treatment Once a Day Treatment Plan OT Treatment Plan ADL Training,Functional Cognition Training,Functional Mobility,Neuromuscular Re- education,Patient/Family Education,Discharge Planning Other Treatment Recommendations and Next assess 9 hole peg Treatment Focus Discharge Recommendations OT Discharge Recommendations Acute Rehab Transportation Needs at Discharge Private Vehicle
--- NOTE | 2021-05-16 13:16 | PT.IPTN ---
Current Diagnoses Cerebral infarction, unspecified (05/15/21) Physical Therapy Treatment Note M2 PT-IP Current Condition Start: 05/15/21 12:34 Freq: NEEDED Status: Active Protocol: Document 05/15/21 10:05 AB (Rec: 05/15/21 12:47 AB [id number]) Physical Therapy Current Condition Current Condition Evaluation Date 05/15/21 Treatment Diagnosis R CVA; difficulty in walking Onset Date 05/15/21 M3 PT-IP Subjective Start: 05/15/21 12:34 Freq: NEEDED Status: Active Protocol: Document 05/16/21 12:57 [facility] (Rec: 05/16/21 13:40 [facility] [id number]) Subjective Physical Therapy Visit Type Type Treatment Note Visit Start Time 12:57 Visit Stop Time 13:16 Total Visit Minutes 19 Notes Pts spouse and son present. Physical Therapy Visit Comments Patient Comments agreeable to do PT M4 PT-IP Mobility and Gait Start: 05/15/21 12:34 Freq: NEEDED Status: Active Protocol: Document 05/16/21 12:57 [facility] (Rec: 05/16/21 13:40 [facility] [id number]) PT-Bed Mobility Assessment Scooting Scooting to Edge of Bed Contact Guard Assistance PT-Transfer Assessment Sit to and From Stand Sit to and from Stand Minimal Assistance,1 Person Assistance,Use of Upper Extremities Equipment Transfer Assistive Device Gait Belt,Front Wheeled Walker Orthotic/Prosthetic Devices or Brace: No Transfers Transfer Destination Chair Transfer Technique ambulated w/ FWW Transfer Ability Level of Assist Minimal Assistance Comments Mobility Comments Pt in chair upon arrival and agreeable to work w/ therapy. CGA for scooting to EOC and Min A for sit<>stand w/ FWW. Pt ambulated ~50 ft w/ FWW CGA to Min A for Fww assistance and safety cues, pt w/ increased weakness on L but bilaterally decreased stride and foot clearance. He then returned to his chair Min A for slow descent and performed 1x10 bilateral ankle pumps, LAQs, glute sets, and seated marches and expressed fatigue from recent shower w/ OT as well. Left in chair w/ alarm on and all needs in reach. Gait Assessment Gait Gait Assistance Required: Contact Guard Assist,Minimum Assistance,1 Person Assist Distance (Feet) 50 Able to Maintain Weight Bearing Status Yes During Gait Assistive Devices Assistive Device Gait Belt,Front Wheeled Walker Orthotic/Prosthetic Devices or Brace: No Gait Deviations General Gait Pattern Decreased Stride Length, Decreased Feet Clearance, Lateral Trunk Lean,Step-to Gait Factors Limiting Gait Function Factors Limiting Gait Function Decreased Activity Tolerance, Decreased Strength,Difficulty Following Directions,Poor Balance,Poor Safety Awareness Comments Gait Comments Please refer to mobility section for details. PT-Balance Assessment Sitting Balance and Reactions Static Sitting Balance Ability Good Dynamic Sitting Balance Ability Fair Standing Balance and Reactions Static Standing Balance Ability Fair Dynamic Standing Balance Ability Poor Device Used FWW M5 PT-IP Objective Assessments Start: 05/15/21 12:34 Freq: NEEDED Status: Active Protocol: Document 05/15/21 10:05 AB (Rec: 05/15/21 12:47 AB [id number]) Orientation Orientation/Cognition Level of Alertness Alert Orientation Name Language Function Ability Word Finding Difficulties Safety Awareness Decreased Safety Awareness Memory Description No Deficits Noted Gross Range of Motion Lower Extremity ROM Assessment Within Functional Limits Strength Lower Extremity Strength Assessment Right Impaired Hip 4-/5 Knee 4-/5 Ankle 4-/5 Sensation Assessment Sensation Gross Sensation WNL Muscle Tone Muscle Tone WNL Yes M6 PT-IP Treatment Start: 05/15/21 12:34 Freq: NEEDED Status: Active Protocol: Document 05/16/21 12:57 [facility] (Rec: 05/16/21 13:40 KS [id number]) Physical Therapy Treatment Exercises Exercises Ankle Pumps,Gluteal Sets,Quad Sets,Seated Knee Flexion/ Extension Education Education Provided Safety Other Treatments Other Treatment Performed Seated march M7 PT-IP Assessment and Plan Start: 05/15/21 12:34 Freq: NEEDED Status: Active Protocol: Document 05/16/21 12:57 [facility] (Rec: 05/16/21 13:40 KS [id number]) PT Summary Assessment and Plan Potential Rehabilitation Potential Good Status of Condition at Evaluation Evolving Summary Impairments Pain,ROM,Strength,Balance, Coordination,Sensation,Tone, Cognition,Bed Mobility, Transfers,Gait,Activity Tolerance Assessment Summary Pt making some progress w/ mobility and tolerance, Min A for sit<>stand and CGA to Min A and safety cues for ambulation w/ FWW but continues to have L sided weakness and impaired gait, poor coordination, and is a high fall risk. He will require acute rehab to improve strength, balance, and functional independence. Goals Bed Mobility Goal Independent Transfer Goal Independent,Front Wheeled Walker Gait Goal Independent,Front Wheel Walker Gait Distance 100 Other Goals up/down 1 step using FWW CGA Days to Meet Goals 10 Frequency of Treatment Frequency Of Treatment Once a Day Treatment Plan Physical Therapy Treatment Plan Bed Mobility Training,Transfer Training,Gait Training, Therapeutic Exercise,Balance Retraining,Discharge Planning, Hot or Cold Pack,Neuromuscular Re-ed,Coordination Retraining ,Manual Therapy Precautions Other Precautions falls Recommendations To Nursing Amount of Assist Needed 1 Person Assist Discharge Recommendations PT Discharge Recommendations Acute Rehab Transportation Needs at Discharge Private Vehicle,Wheelchair/ Cabulance
--- NOTE | 2021-05-16 13:25 | CM.DPC ---
Addendum entered by Roma Hill R.N. 05/16/21 15:44: Was able to meet with family, son, Pee, and spouse, Althea. Updated patient and family that [facility] has no beds until at least Tuesday, and [facility] has not called back. Let them know that back up is custodial, and that [facility] is reviewing, as well as [facility]. [facility] has no male beds. Family is appreciative Original Note: DCP Cont: Attempted to call [facility] inpatient rehab, and left two messages on their admission phone. Called [facility] to confirm that they are full. Spoke to Wesley in admissions, and indicated that they may have a bed by Tuesday or Tuesday at the latest. Was also informed that if patients are not able to get to their facility via cabulence, family members can transport as long as they have a mask in place. Went ahead and sent additional referrals to [facility], spoke to Queenie, and she stated, could possibly have a bed by Tuesday, but not sure. Sent to [facility], and [facility]. Left messages on their voice mails. P: DCP to continue to follow and look for rehab. [facility] could possibly take Tuesday if bed is available, [facility] out to [facility], [facility] Roma Hill RN/[facility] G[facility].
[2021-05-16] MEDS: NIFEdipine 30 MG TAB ER PO (17:54)
--- NOTE | 2021-05-16 18:40 | PC.NURSE ---
Addendum entered by Jeni Vines R.N. 05/16/21 18:46: Reviewed student nurse Kevin Ochoa's charting and agree with contents. Original Note: Day Shift Note BP increasing this afternoon (see VS). Dr. Smith notified and order received for nifedipine PO which was given. Ordered to reassess in a couple hours and to give labetalol if still elevated (see labetalol parameters). Pt otherwise doing well this shift, denies pain, denies nausea. Full strength to BUEs. Slightly weaker to LLE per pt. Up with PT/OT. Bed alarm on for safety. Call light within reach, using appropriately to make needs known.
[2021-05-16] MEDS: ATORVASTATIN 20 MG TABLET 80 MG PO (21:06)
[2021-05-17] VITALS (7 sets, daily range): BP systolic 131–168; BP diastolic 60–76; PULSE 60–70; RESP 16–21; TEMP 36.4–37.1; O2SAT 95–98
[2021-05-17 06:02] LABS: BUN Creatinine Ratio 19.3 (6-22); Blood Urea Nitrogen 16 mg/dL (9-20); Calcium 9.4 mg/dL (8.4-10.2); Carbon Dioxide 27 mmol/L (22-32); Chloride 104 mmol/L (98-107); Estimated Glomerular Filt Rate > 60.0 mL/min (>60); Glucose 131 mg/dL (80-110); HEMOLYSIS < 15 (0-50); Potassium 3.4 mmol/L (3.4-5.1); Sodium 138 mmol/L (137-145)
[2021-05-17] MEDS: lisinopriL 20 MG TABLET 40 MG PO (08:15)
[2021-05-17] MEDS: ENOXAPARIN 40 MG/0.4 ML SYRINGE SUBCUT (08:15)
[2021-05-17] MEDS: MEMANTINE HCL 5 MG TABLET 10 MG PO ×2 (08:15→20:34)
[2021-05-17] MEDS: ASPIRIN EC 81 MG TABLET PO (08:15)
[2021-05-17] MEDS: NIFEdipine 30 MG TAB ER PO (08:15)
[2021-05-17] MEDS: METOPROLOL ER 50 MG TABLET PO (08:15)
[2021-05-17] MEDS: hydroCHLOROthiazide 25 MG TABLET PO (08:16)
[2021-05-17] MEDS: POTASSIUM CHLORIDE 20 MEQ TAB 40 MEQ PO (08:20)
--- NOTE | 2021-05-17 09:20 | CM.DPC ---
DCP Cont: Angie from [facility] stated that she most likely can accept patient, would just need some nursing and therapy notes. This was a message on voice mail. 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 Spoke to Jamar in admissions. He indicated, they have patient's referral, Tyler started working on it. Asked him if they can accept today, but he indicated, they can't accept today, but most likely tomorrow. Will fax him updated therapy notes. Their fax number is: [phone]. Will still fax notes to Angie at [facility] as well. P: DCP to fax notes to [facility] for plan of discharge tomorrow, and to Angie at [facility] as back up. Roma Hill RN/Girl Friday
--- NOTE | 2021-05-17 10:58 | PT.IPTN ---
Current Diagnoses Cerebral infarction, unspecified (05/15/21) Physical Therapy Treatment Note M2 PT-IP Current Condition Start: 05/15/21 12:34 Freq: NEEDED Status: Active Protocol: Document 05/15/21 10:05 AB (Rec: 05/15/21 12:47 AB [id number]) Physical Therapy Current Condition Current Condition Evaluation Date 05/15/21 Treatment Diagnosis R CVA; difficulty in walking Onset Date 05/15/21 M3 PT-IP Subjective Start: 05/15/21 12:34 Freq: NEEDED Status: Active Protocol: Document 05/17/21 10:40 KS (Rec: 05/17/21 11:36 KS [id number]) Subjective Physical Therapy Visit Type Type Treatment Note Visit Start Time 10:40 Visit Stop Time 10:58 Total Visit Minutes 18 Physical Therapy Visit Comments Patient Comments agreeable to do PT M4 PT-IP Mobility and Gait Start: 05/15/21 12:34 Freq: NEEDED Status: Active Protocol: Document 05/17/21 10:40 KS (Rec: 05/17/21 11:36 KS [id number]) PT-Transfer Assessment Sit to and From Stand Sit to and from Stand Minimal Assistance,1 Person Assistance,Use of Upper Extremities Equipment Transfer Assistive Device Gait Belt,Front Wheeled Walker Orthotic/Prosthetic Devices or Brace: No Transfers Transfer Destination Chair Transfer Technique ambulated w/ FWW Transfer Ability Level of Assist Minimal Assistance Comments Mobility Comments Pt in bed upon arrival and agreeable to ambulation around room. CGA for sup<>sit, Min A and cues for sit<>stand w/ FWW. Pt then ambulated ~60 ft around room w/ FWW and CGA to Min A for FWW management. Pt w / increased L sided weakness but no knee buckling this visit. Some difficulty avoiding obstacles w/ FWW needing verbal cues. Decreased stride and foot clearance/ small shuffling steps. Pt left in chair w/ all needs in reach. Gait Assessment Gait Gait Assistance Required: Contact Guard Assist,Minimum Assistance,1 Person Assist Distance (Feet) 60 Able to Maintain Weight Bearing Status Yes During Gait Assistive Devices Assistive Device Gait Belt,Front Wheeled Walker Gait Deviations General Gait Pattern Decreased Stride Length, Decreased Feet Clearance, Lateral Trunk Lean,Step-to Gait Factors Limiting Gait Function Factors Limiting Gait Function Decreased Activity Tolerance, Decreased Strength,Difficulty Following Directions,Poor Balance,Poor Safety Awareness Comments Gait Comments Please refer to mobility section for details. PT-Balance Assessment Sitting Balance and Reactions Static Sitting Balance Ability Good Dynamic Sitting Balance Ability Fair Standing Balance and Reactions Static Standing Balance Ability Fair Dynamic Standing Balance Ability Poor Device Used FWW M5 PT-IP Objective Assessments Start: 05/15/21 12:34 Freq: NEEDED Status: Active Protocol: Document 05/15/21 10:05 AB (Rec: 05/15/21 12:47 AB [id number]) Orientation Orientation/Cognition Level of Alertness Alert Orientation Name Language Function Ability Word Finding Difficulties Safety Awareness Decreased Safety Awareness Memory Description No Deficits Noted Gross Range of Motion Lower Extremity ROM Assessment Within Functional Limits Strength Lower Extremity Strength Assessment Right Impaired Hip 4-/5 Knee 4-/5 Ankle 4-/5 Sensation Assessment Sensation Gross Sensation WNL Muscle Tone Muscle Tone WNL Yes M6 PT-IP Treatment Start: 05/15/21 12:34 Freq: NEEDED Status: Active Protocol: Document 05/17/21 10:40 KS (Rec: 05/17/21 11:36 KS [id number]) Physical Therapy Treatment Education Education Provided Safety Other Treatments Other Treatment Performed Marching in place M7 PT-IP Assessment and Plan Start: 05/15/21 12:34 Freq: NEEDED Status: Active Protocol: Document 05/17/21 10:40 KS (Rec: 05/17/21 11:36 KS [id number]) PT Summary Assessment and Plan Potential Rehabilitation Potential Good Status of Condition at Evaluation Evolving Summary Impairments Pain,ROM,Strength,Balance, Coordination,Sensation,Tone, Cognition,Bed Mobility, Transfers,Gait,Activity Tolerance Assessment Summary Pt continues to require CGA to Min A for mobility and cues for sequencing and safety awareness. He was able to ambulate ~60 ft w/ FWW but poor safety awareness, L sided weakness, and decreased stride and foot clearance increase pts risk of falls and he is unsafe to ambulate w/o assistance. He will require acture rehab to improve strength, balance, and functional independence. Goals Bed Mobility Goal Independent Transfer Goal Independent,Front Wheeled Walker Gait Goal Independent,Front Wheel Walker Gait Distance 100 Other Goals up/down 1 step using FWW CGA Days to Meet Goals 10 Frequency of Treatment Frequency Of Treatment Once a Day Treatment Plan Physical Therapy Treatment Plan Bed Mobility Training,Transfer Training,Gait Training, Therapeutic Exercise,Balance Retraining,Discharge Planning, Hot or Cold Pack,Neuromuscular Re-ed,Coordination Retraining ,Manual Therapy Precautions Other Precautions falls Recommendations To Nursing Amount of Assist Needed 1 Person Assist Discharge Recommendations PT Discharge Recommendations Acute Rehab Transportation Needs at Discharge Private Vehicle,Wheelchair/ Cabulance
--- NOTE | 2021-05-17 12:21 | P.PN_ITS ---
Subjective Subjective Date Patient Seen: 05/17/21 Time Patient Seen: 12:22 Interval history: 80 year old male admitted with leg weakness due to acute CVA. Still with difficulty ambulating. Feels well today, strength he feels is improving somewhat. No chest pain, nausea, vomiting or headache. BP remains high, added HCTZ this AM. Exam Vital Signs (past 8 hours): - 05/17/21 08:00 05/17/21 08:15 05/17/21 11:54 Temperature 98.4 F 98.4 F Pulse Rate 66 66 Respiratory Rate 17 16 Blood Pressure 163/76 H 163/76 H 139/65 Pulse Oximetry 97 98 Oxygen Delivery Method Room Air Oxygen Flow Rate 0 Narrative Exam Narrative: General:? Patient is a well-developed, well-nourished elderly gentlemen, resting comfortably in ED, in no distress at this time. HEENT:? Normocephalic, atraumatic, extraocular muscles intact, oral pharynx is clear and mucous membranes are moist.? Neck is supple and symmetric, trachea is midline, no adenopathy, no thyroid enlargement, nontender, no masses palpated.? Negative for JVD Chest:? Normal AP diameter and contour without kyphoscoliosis, no nasal flaring, retractions, or tachypneic labored Lungs:? Auscultation of all lung nieto are clear without adventitious sounds, wheezes, rhonchi, or rales. Cardio:? S1 & S2 with regular rate and rhythm without murmur, rubs, or gallops, no carotid bruit, no cardiac pulsations present. Abdomen:? Soft nontender, negative for organomegaly, or masses.? Bowel sounds are present in all 4 quadrants without guarding or rebound, no CVA tenderness. Musculoskeletal:? Muscle strength and tone are equal within normal limits, no deformity, crepitus, effusions, cyanosis, clubbing or edema present.? Full range of motion intact radial and pedal pulses are normal. Skin:? Warm dry and intact without rashes, ulcerations or petechiae.? Neuro:? Alert and orientated x3, strength is +5/5 in all extremities, sensation to touch intact, no gross deficits noted of cranial nerves. Psych:? Patient has a well-kept appearance, appropriate affect, mental status attitude thought context and judgment are appropriate for age. 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 Obesity (BMI 30-39.9) Obstructive sleep apnea Vascular dementia Surgical History H/O hernia repair History of tonsillectomy Hx laparoscopic cholecystectomy Hx of transurethral resection of prostate Family History Mother Congestive heart failure Father Cancer Social History marital status: household members: spouse Smoking Status: Former smoker alcohol intake: current Assessment & Plan Assessment & Plan narrative: Robbin Peña is an 80yr old male with a medical history of paroxysmal atrial fibri llation, essential hypertension, hyperlipidemia, BPH, TAD with CPAP, TIA, and stroke in 2007 and vascular dementia patient presented tonight with slurred speech and left-sided weakness left arm and left leg,? Initial NIH:7, and a? hypertensive emergency 228/111. Improved symptoms with BP control, however also found to have thrombosis and multiple acute infarcts on imaging. 1. CVA, acute, present on admission. -patient was asymptomatic of all signs and symptoms within 30 minutes on the nicardipine drip -History of stroke 2007 -the neuro stroke consult also advised that the patient was not a candidate for TPA, and not to initiate Plavix, only ASA due to the patient's age & fall risk and injury. -Admitted to ICU initially now regular floor. -MR shows multiple acute right sided infarcts and a L occipital lobe infarct. TTE unremarkable. -ASA, Lipitor 80 mg ordered -consider DOAC as an outpatient in the future, not currently recommended given bleeding risk and multitude of brain infarcts. 2. Hypertensive emergency, in the setting of essential hypertension, acute on chronic, present on admission -as noted above patient was on cardene gtt initially. - remained hypertensive despite 2 agents, added HCTZ and nifedipine with some improvement today. Continue to adjust as needed. ?- monitor BMP on diuertic. 3. Proximal atrial fibrillation, chronic, present on admission -continue patient's metoprolol -consider DOAC as outpatient. 4. Hyperlipidemia, chronic, present on admission -holding patient's simvastatin replacing with 80 mg of Lipitor while inpatient. 5. Vascular dementia, chronic, present on admission -continue memantine Code status: DNR/DNI Surrogate decision maker: Dee BATES PCR: Negative DVT/VTE prophylaxis:Lovenox 40mg Dispo: plan for acute rehab, hopeful for tomorrow I have utilized all available immediate resources to obtain, update, or review the patient's current medications. I confirmed that the patient's advanced care plan is present, Code status is documented and/or surrogate decision maker is listed in the patient's medical record. Time Spent With Patient Critical Care time: I spent a total of [] minutes of critical care time on this patient's care today; this time is exclusive of procedural time.
[2021-05-17 12:51] LABS: COVID19 -Nasal RAPID Negative (Negative)
[2021-05-17] MEDS: ATORVASTATIN 20 MG TABLET 80 MG PO (20:34)
[2021-05-18] VITALS: BP 129/61; PULSE 57; RESP 18; TEMP 36.6; O2SAT 95
[2021-05-18 04:00] VITALS: BP 131/59; PULSE 60; RESP 17; TEMP 36.6; O2SAT 97
[2021-05-18 06:48] LABS: BUN Creatinine Ratio 23.1 (6-22); Blood Urea Nitrogen 28 mg/dL (9-20); Calcium 9.2 mg/dL (8.4-10.2); Carbon Dioxide 29 mmol/L (22-32); Chloride 101 mmol/L (98-107); Estimated Glomerular Filt Rate 57.7 mL/min (>60); Glucose 111 mg/dL (80-110); HEMOLYSIS < 15 (0-50); Potassium 3.5 mmol/L (3.4-5.1); Sodium 135 mmol/L (137-145)
[2021-05-18 08:00] VITALS: BP 123/60; PULSE 58; RESP 18; TEMP 36.9; O2SAT 96
[2021-05-18] MEDS: MEMANTINE HCL 5 MG TABLET 10 MG PO (08:54)
[2021-05-18] MEDS: ENOXAPARIN 40 MG/0.4 ML SYRINGE SUBCUT (08:54)
[2021-05-18] MEDS: METOPROLOL ER 50 MG TABLET PO (08:54)
[2021-05-18] MEDS: ASPIRIN EC 81 MG TABLET PO (08:54)
[2021-05-18] MEDS: NIFEdipine 30 MG TAB ER PO (08:55)
[2021-05-18] MEDS: lisinopriL 20 MG TABLET PO (08:55)
--- NOTE | 2021-05-18 11:05 | PT.IPTN ---
Current Diagnoses Cerebral infarction, unspecified (05/15/21) Physical Therapy Treatment Note M2 PT-IP Current Condition Start: 05/15/21 12:34 Freq: NEEDED Status: Active Protocol: Document 05/15/21 10:05 AB (Rec: 05/15/21 12:47 AB [id number]) Physical Therapy Current Condition Current Condition Evaluation Date 05/15/21 Treatment Diagnosis R CVA; difficulty in walking Onset Date 05/15/21 M3 PT-IP Subjective Start: 05/15/21 12:34 Freq: NEEDED Status: Active Protocol: Document 05/18/21 13:57 KS (Rec: 05/18/21 14:03 KS [id number]) Subjective Physical Therapy Visit Type Type Treatment Note Visit Start Time 10:48 Visit Stop Time 11:05 Total Visit Minutes 17 Physical Therapy Visit Comments Patient Comments agreeable to do PT M4 PT-IP Mobility and Gait Start: 05/15/21 12:34 Freq: NEEDED Status: Active Protocol: Document 05/18/21 13:57 KS (Rec: 05/18/21 14:03 KS [id number]) PT-Transfer Assessment Sit to and From Stand Sit to and from Stand Contact Guard Assistance, Minimal Assistance,1 Person Assistance,Use of Upper Extremities Equipment Transfer Assistive Device Gait Belt,Front Wheeled Walker Orthotic/Prosthetic Devices or Brace: No Transfers Transfer Destination Chair Transfer Technique ambulated w/ FWW Transfer Ability Level of Assist Minimal Assistance Comments Mobility Comments Pt in bed upon arrival and CGA for sup<>sit, Min A and cues for sit<>stand. Pt then ambulated ~60 ft around room w / FWW shffling gait/decreased stride and foot clearance and frequent cues for FWW management. Pt then sat in chair and performed 5x sit<> Stands at first w/ min A but then CGA to Min for controlled descent. He then completed 1x10 bilateral ankle pumps, seated marches, and seated knee extension. Left in chair w/ alarm on and family entering room. Gait Assessment Gait Gait Assistance Required: Contact Guard Assist,Minimum Assistance,1 Person Assist Distance (Feet) 60 Able to Maintain Weight Bearing Status Yes During Gait Assistive Devices Assistive Device Gait Belt,Front Wheeled Walker Gait Deviations General Gait Pattern Decreased Stride Length, Decreased Feet Clearance, Lateral Trunk Lean,Step-to Gait Factors Limiting Gait Function Factors Limiting Gait Function Decreased Activity Tolerance, Decreased Strength,Difficulty Following Directions,Poor Balance,Poor Safety Awareness Comments Gait Comments Please refer to mobility section for details. PT-Balance Assessment Sitting Balance and Reactions Static Sitting Balance Ability Good Dynamic Sitting Balance Ability Fair Standing Balance and Reactions Static Standing Balance Ability Fair Dynamic Standing Balance Ability Poor Device Used FWW M5 PT-IP Objective Assessments Start: 05/15/21 12:34 Freq: NEEDED Status: Active Protocol: Document 05/15/21 10:05 AB (Rec: 05/15/21 12:47 AB [id number]) Orientation Orientation/Cognition Level of Alertness Alert Orientation Name Language Function Ability Word Finding Difficulties Safety Awareness Decreased Safety Awareness Memory Description No Deficits Noted Gross Range of Motion Lower Extremity ROM Assessment Within Functional Limits Strength Lower Extremity Strength Assessment Right Impaired Hip 4-/5 Knee 4-/5 Ankle 4-/5 Sensation Assessment Sensation Gross Sensation WNL Muscle Tone Muscle Tone WNL Yes M6 PT-IP Treatment Start: 05/15/21 12:34 Freq: NEEDED Status: Active Protocol: Document 05/18/21 13:57 KS (Rec: 05/18/21 14:03 KS [id number]) Physical Therapy Treatment Exercises Exercises Ankle Pumps,Quad Sets,Seated Knee Flexion/Extension Education Education Provided Safety Other Treatments Other Treatment Performed 5x sit<stand, seated marches M7 PT-IP Assessment and Plan Start: 05/15/21 12:34 Freq: NEEDED Status: Active Protocol: Document 05/18/21 13:57 KS (Rec: 05/18/21 14:03 KS [id number]) PT Summary Assessment and Plan Potential Rehabilitation Potential Good Status of Condition at Evaluation Evolving Summary Impairments Pain,ROM,Strength,Balance, Coordination,Sensation,Tone, Cognition,Bed Mobility, Transfers,Gait,Activity Tolerance Assessment Summary Pt CGA to Min A for mobility and continues to need frequent cues for FWW managment when ambulating. Quick approach to fatigue following LE strengthening exercises and ambulation. Pt unsafe to ambulate alone and w/ poor safety awareness therefore requiring acute rehab to improve strength, balance, and functional independence. Goals Bed Mobility Goal Independent Transfer Goal Independent,Front Wheeled Walker Gait Goal Independent,Front Wheel Walker Gait Distance 100 Other Goals up/down 1 step using FWW CGA Days to Meet Goals 10 Frequency of Treatment Frequency Of Treatment Once a Day Treatment Plan Physical Therapy Treatment Plan Bed Mobility Training,Transfer Training,Gait Training, Therapeutic Exercise,Balance Retraining,Discharge Planning, Hot or Cold Pack,Neuromuscular Re-ed,Coordination Retraining ,Manual Therapy Precautions Other Precautions falls Recommendations To Nursing Amount of Assist Needed 1 Person Assist Discharge Recommendations PT Discharge Recommendations Acute Rehab Transportation Needs at Discharge Private Vehicle,Wheelchair/ Cabulance
[2021-05-18 11:42] VITALS: BP 122/64; PULSE 66; RESP 15; TEMP 37.1; O2SAT 98
--- NOTE | 2021-05-18 12:15 | ST.OPTN ---
Visit Care Team Role Provider Type Stephen Mora MD Primary Care Provider Non-Staff Address: [address] [place] [address], [id number] Lalo Moreira MD Other Providers Physician Address: Phone: Fax: Terri Roque MD Other Providers Physician Address: Phone: Fax: Danni Rice MD Other Providers Physician Address: Phone: Fax: Santiago Rudd MD Other Providers Physician Address: Phone: Fax: Maggy Benton MD Other Providers Physician Address: Phone: Fax: Won Quinones MD Other Providers Physician Address: Phone: Fax: Dayne Arcos MD Other Providers Physician Address: Phone: Fax: Chai Lehman MD Other Providers Physician Address: Phone: Fax: Ross Rice MD Other Providers Physician Address: Phone: Fax: Mone St MD Other Providers Physician Address: Phone: Fax: Christi Koehler Other Providers Physician Address: Phone: Fax: Jae Grissom MD Other Providers Physician Address: Phone: Fax: Won Bradley DO Emergency Provider Physician Referring Provider Address: [address] [place] [address] Vidhi Webster [facility] Admit Provider Physician Attending Provider Address: [address] [place] [address] STAGE ELECTRICIAN HELPER Treatment Note STAGE ELECTRICIAN HELPER Treatment Note Start: 05/15/21 16:07 Freq: Status: Active Protocol: Document 05/18/21 12:09 VILMA (Rec: 05/18/21 12:15 VILMA [id number]) Speech Pathology Treatment Note Session Time Visit Start Time 11:45 Visit Stop Time 12:00 Total Visit Minutes 15 Visit Information Visit Number 3 Setting Treatment Setting Acute Care Visit Type Note Type Treatment Note Next Note Type Next Note Type Treatment Note General Information General Information Robbin Peña is an 80yr old male with a medical history of paroxysmal atrial fibrillation , essential hypertension, hyperlipidemia, BPH, TAD with CPAP, TIA, and stroke in 2007 and vascular dementia patient presented tonight with slurred speech and left-sided weakness left arm and left leg , Initial NIH:7, and a hypertensive emergency 228/111 . Neurostroke consult advise Dr. Bradley that the patient was not a candidate for advanced intervention as they do not go after posterior thrombosis, as the tissue dies to quickly, and that the patients s/s had resolved 30min after starting the nicardipine drip. Patient admitted for stroke rule out, management of hypertensive emergency, and risk stratification. Subjective Identification Type Name,ID Wristband Identification Reconciled With ID Bracelet Chief Complaint(s) Speech,Language,Cognitive Patient Knowledge/Awareness of STAGE ELECTRICIAN HELPER Role Good in Treatment Patient/Caregiver Compliance with Home Good Exercise Program Objective Short Term Goals Pt will recognize 10/10 words of common items. Pt will be able to divergently name 10 items from specified category. Pt and family will be provided with education of pt's condition and therapy goals. Treatment Activities Pt was seated in chair with family present upon STAGE ELECTRICIAN HELPER entry and was agreeable to participate in treatment session. Pt reported no difficulty with word finding or difficulty reading. Pt participated in reading activity. Pt successfully read 6/7 words. He was observed to identify each letter and then sound out the word. Pt requested what letter he was looking at x2. No difference noted between reading lowercase or capital letters noted. STAGE ELECTRICIAN HELPER and pt reviewed word finding strategies and pt indicated he had not practiced any on his own. He named 7 items in a given category (i.e., animals). Pt had no questions before STAGE ELECTRICIAN HELPER ended the session. Pt would be a good candidate for inpatient rehab facility upon discharge. Assessment Patient Response to Treatment Good Rehab Potential Good Impairments Identified Expressive Language,Memory - Short Term,Receptive Language, Other Progress Towards Goals Good Progress Assessment of Overall Progress Improving Assessment of Improvement Pt answered all questions from this STAGE ELECTRICIAN HELPER appropriately today. Pt was friendly and was successful at reading. Nursing reported no difficulty with word finding in interactions with him. Reviewed with Patient Goals,Progress Being Made Patient/Caregiver Understanding Good Plan Therapeutic Contents Expressive Language Training, Receptive Language Training, Other Provided Patient/Caregiver Instruction Plan of Care,Questions/ Concerns Therapy Recommendations Continue with Current Program
--- NOTE | 2021-05-18 12:22 | CM.DPC ---
DCP continued: patient is medically ready for DC. CM called [facility] and spoke with Tyler who is still in the process of getting the patient accepted to their facility today. patients son will be providing transport to [facility] if they accept. CM faxed over progress notes, Vaccination record, Covid test results and most current Vitals. CM will continue to work with Tyler to get DC time and plan. Julia baxter RNmanager medicaid
[2021-05-18 13:12] VITALS: BP 124/58; PULSE 58; RESP 16; TEMP 36.8; O2SAT 96
--- NOTE | 2021-05-18 14:07 | P.DS_ITS ---
History of Present Illness History of Present Illness Chief complaint: Code stroke Narrative: Per Vidhi Webster: Robbin Peña is an 80yr old male with a medical history of paroxysmal atrial fibrillation, essential hypertension, hyperlipidemia, BPH, TAD with CPAP, TIA, and stroke in 2007 and vascular dementia patient was brought in to the ED via EMS as a code stroke.? The patient reports that he was at home this evening watching TV at approximately 10:15 p.m. he would distended to go to bed became lightheaded and slumped to the floor did not hit his head or lose consciousness his was present and states the patient demonstrated slurred speech and left-sided weakness left arm and left leg.? Initial NIH:7, the patient also presented in hypertensive emergency 228/111. Dr. Bradley consulted with Neuros troke who reviewed the case and recommended the patient be put on a nicardipine drip with a SBP goal of<200.? Half an hour after starting drip the patient's symptoms resolved.? Patient denies headache, changes in vision, difficulty swallowing, weakness, numbness, tingling, difficulties with speech, dizziness, chest pain, shortness of breath, diaphoresis, palpitations, abdominal pain, nausea, vomiting, chills, fever, body aches, recent illness, injury, or trauma. I conducted admit interview in the ED patient was symptom free, NIH:0 patient was able to completely recall the night's events, was alert and orientated x3.? Patient's vitals upon admit temp 98.4?, B/P 221/110, HR 84, R 18, O2 saturation 95% on room air.? Patient's CBC was within normal limits with the exception of platelets 123, CMP also within normal limits with the exception of glucose of 138, UA negative no culture indicated.? Patient's head neck CTA demonstrated thrombus in the right proximal BUMPER OPERATOR just distal to the bifurcation. Dominant right vertebral artery with severe atherosclerotic calcifications and 90% stenosis in the intracranial portion, with severe atherosclerotic calcifications in both intracranial ICAs with approximately 70% stenosis bilaterally, and atherosclerotic disease of both carotid arteries with no significant stenosis.? Patient's brain CT demonstrated no acute intracranial abnormality, with a remote right frontoparietal infarct.? Patient's EKG I personally reviewed normal sinus rhythm with a rate of 78, and a right bundle bunch block, inferior infarct of undetermined age.? Patient is admitted for left neurological deficit, TIA versus stroke, with hypertensive emergency on a nicardipine drip to the ICU. Discharge Providers Provider Date of admission: 05/15/21 03:36 Discharge Date: 05/18/21 Primary care physician: Stephen Mora MD Consults: 05/15/21 Consult to Tele-supervisor wood room Stat Comment: Consulting Provider: [employer] Reason for consultation: Specification Consultant services Has provider been notified: Yes 05/15/21 02:05 Consult to Discharge Planning Routine Comment: Consult to Occupational Therapy Evaluate & Treat Comment: left side weakness - Physician Instructions: Evaluate and treat Consult to Physical Therapy Evaluate & Treat Comment: left side weakness Physician Instructions: Evaluate and Treat Consult to Speech Therapy Evaluate & Treat Comment: slurred speach Physician Instructions: Evaluate and treat 05/15/21 04:20 Consult to Dietitian, Adult Routine Comment: Reason For Exam: weight loss Discharge provider: Jerzy Trotter MD Summary Hospital Course Discharge Diagnosis: 1. Acute CVA 2. Hypertensive emergency 3. Paroxysmal atrial fibrillation 4. Hyperlipidemia 5. Chronic vascular dementia Hospital Course: Mr. Peña was admitted after a CVA. Neurology consulted and recommended that he was not a TPA candidate. And to start him on only asa and statin. MRI showed mutiple acute right sided infarcts and left occipital lobe infarct. He does have a history of afib, and thrombus was noted in right proximal BUMPER OPERATOR, but he did not undergo IR intervention. He was not started on doac in the hospital due to concern about bleeding risk with the recent stroke. He should have this potentially started as an outpatient. He did have significant hypertension initially but this improved with titration of his blood pressure medications. He is discharged to SNF for inpatient rehab as he continued to have gait difficulties and weakness. Exam Vital Signs (past 8 hours): - 05/18/21 08:00 05/18/21 11:42 05/18/21 13:12 Temperature 98.5 F 98.7 F 98.2 F Pulse Rate 58 L 66 58 L Respiratory Rate 18 15 16 Blood Pressure 123/60 122/64 124/58 L Pulse Oximetry 96 98 96 Oxygen Delivery Method Room Air Oxygen Flow Rate 0 Narrative Exam Narrative: GEN: no acute distress PULM: clear bilaterally CV: regular rate and rhythm NEURO: awake alert, slight decreased strenght in legs Objective Labs Result Diagrams: 05/14/21 23:30 05/18/21 05:50 Labs: Laboratory Results - last 24 hr 05/18/21 05:50 Sodium 135 L Potassium 3.5 Chloride 101 Carbon Dioxide 29 BUN 28 H Creatinine 1.21 Estimated GFR 57.7 L BUN/Creatinine Ratio 23.1 H Glucose 111 H Calcium 9.2 PFSH Medical History Atrial fibrillation with controlled ventricular rate BPH (benign prostatic hyperplasia) Cataract (lens) fragments in eye following cataract surgery, bilateral Hyperlipidemia 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 Obesity (BMI 30-39.9) Obstructive sleep apnea Vascular dementia Surgical History H/O hernia repair History of tonsillectomy Hx laparoscopic cholecystectomy Hx of transurethral resection of prostate Family History Mother Congestive heart failure Father Cancer Social History marital status: household members: spouse Smoking Status: Former smoker alcohol intake: current Discharge Plan Discharge Plan Patient Disposition: Xfer Inpatient Rehab Discharge orders & Medications Discharge Orders: Discharge (Order); Ordered 05/18/21 Ordered By: Jerzy Trotter Prescriptions: No Action memantine 10 mg tablet 10 mg PO BID 0RF lisinopril 20 mg tablet 20 mg PO BID 0RF simvastatin 20 mg tablet 20 mg PO DAILY 0RF aspirin [Adult Low Dose Aspirin] 81 mg Tablet,Delayed Release (Dr/Ec) 81 mg PO DAILY 0RF metoprolol succinate 50 mg tablet extended release 24 hr 50 mg PO DAILY 0RF Follow up/Referrals: Stephen Mora MD [Primary Care Provider] - Diet/Activity/Treatments Diet: Regular Liquid consistency: Normal/Thin Food texture: Regular Special Rehabilitation Services Rehab type: Physical therapy, Occupational therapy and Speech therapy Discharge Data Primary Care Provider: Stephen Mora
[2021-05-18] MEDS: MAGNESIUM HYDROXIDE 30 ML UDC PO (14:29)
--- NOTE | 2021-05-18 14:33 | OT.IPNOTE ---
Chart reviewed and discussed with CM. Pt is planned for d/c to acute rehab today. Discussed with family and pt and pt and family agree that holding on OT at this time to preserve endurance for transfer and PM sessions with acute rehab. No OT services rendered.
== END 2021-05-18 15:27 | DRG 65 ==
LOC: ED 05-15 02:10 → AC 05-15 03:37 → ICU 05-15 09:01
PROVIDERS: Internal Medicine; Admitting Provider Nurse Practitioner Family; Emergency Provider Emergency Medicine; PCP Family Medicine; Referring Provider Emergency Medicine; Visit Provider Nurse Practitioner Family
DX: I63.9 Cerebral infarction, unspecified (principal); G81.94 Hemiplegia, unspecified affecting left nondominant side; I16.1 Hypertensive emergency; I48.0 Paroxysmal atrial fibrillation; R47.81 Slurred speech; I10 Essential (primary) hypertension; E78.5 Hyperlipidemia, unspecified; F01.50 Vascular dementia, unspecified severity, without behavioral disturbance, psychotic disturbance, mood disturbance, and anxiety; R29.707 NIHSS score 7; G47.33 Obstructive sleep apnea (adult) (pediatric); R29.706 NIHSS score 6; Z66 Do not resuscitate; Z20.822 Contact with and (suspected) exposure to COVID-19; Z87.891 Personal history of nicotine dependence; Z86.73 Personal history of transient ischemic attack (TIA), and cerebral infarction without residual deficits
CPT/HCPCS: 36415; 70450; 70496; 70498; 70551; 80048; 80053; 80061; 80320; 81001; 82550; 82962; 83036; 83690; 83735; 83880; 84443; 84484; 85025; 85610; 85730; 87635; 92507; 93005; 93010; 93306; 96105; 96361; 96365; 96366; 96375; 96376; 97116; 97162; 97167; 97530; 97535; 99285; 99291; C9803; Q3014; J1650; J2405; Q9967